=== PATIENT | female | born 1935 | race Caucasian/White ===

== ENCOUNTER → 2016-12-30 | Outpatient (CLI) | payer MEDICARE, BC ==
--- NOTE | 2016-12-30 10:55 | US ---
EXAMINATION TYPE: US venous doppler duplex LE LT DATE OF EXAM: 12/30/2016 10:36 AM COMPARISON: NONE CLINICAL HISTORY: Lt leg, M25.572 Ankle, M79.672 Foot Pain. Fracture left ankle x 6 weeks ago. Pain. Takes aspirin daily. SIDE PERFORMED: Left TECHNIQUE: The lower extremity deep venous system is examined utilizing real time linear array sonog bernice with graded compression, doppler sonography and color-flow sonography. VESSELS IMAGED: External Iliac Vein (EIV) Common Femoral Vein Deep Femoral Vein Greater Saphenous Vein * Femoral Vein Popliteal Vein Small Saphenous Vein * Proximal Calf Veins (* superficial vessels) Left Leg: Appears negative for DVT IMPRESSION: No evidence for DVT at this time.
== END | disposition home or self-care (01) ==
LOC: RADUSWWP 10:01
PROVIDERS: ATTEND Orthopaedic Surgery
DX: M25.572 Pain in left ankle and joints of left foot (principal); M79.672 Pain in left foot; I80.9 Phlebitis and thrombophlebitis of unspecified site

== ENCOUNTER → 2017-09-01 | Outpatient (CLI) | payer MEDICARE, BC ==
--- NOTE | 2017-09-01 09:41 | US ---
EXAMINATION TYPE: US carotid duplex BILAT DATE OF EXAM: 09/01/2017 COMPARISON: NONE CLINICAL HISTORY: 82-year-old female R09.89 Right carotid bruit. TECHNIQUE: Carotid duplex ultrasound examination. Indirect Doppler criteria was utilized. FINDINGS: Grayscale images show bilateral tortuous vessels and minimal atherosclerotic change at the bifurcatio ns. EXAM MEASUREMENTS: RIGHT: Peak Systolic Velocity (PSV) cm/sec ----- Right CCA: 109.9 ----- Right ICA: 96.3 ----- Right ECA: 77.1 ICA/CCA ratio: 0.9 RIGHT: End Diastole cm/sec ----- Right CCA: 8.1 ----- Right ICA: 13.9 ----- Right ECA: 9.8 LEFT: Peak Systolic Velocity (PSV) cm/sec ----- Left CCA: 70.7 ----- Left ICA: 92.7 ----- Left ECA: 63.6 ICA/CCA ratio: 1.3 LEFT: End Diastole cm/sec ----- Left CCA: 7.2 ----- Left ICA: 24.1 ----- Left ECA: 10.4 VERTEBRALS (direction of flow): Right Vertebral: Antegrade Left Vertebral: Antegrade Rhythm: Arrhythmia IMPRESSION: No hemodynamically significant stenosis appreciated in either internal carotid artery. Criteria for Assigning % of Stenosis / Diameter reduction (Estimation based on the indirect measurements of the internal carotid artery velocities (ICA PSV). 1. Normal (no stenosis)=ICA PSV < 125 cm/s: ratio < 2.0: ICA EDV<40 cm/s. 2. Less than 50% stenosis=ICA PSV < 125 cm/s: ratio < 2.0: ICA EDV<40 cm/s. 3. 50 to 69% stenosis=ICA PSV of 125 to 230 cm/s: ration 2.0 ? 4.0: ICA EDV 40-100 cm/s. 4. Greater than 70% stenosis to near occlusion= ICA PSV > 230 cm/s: ratio > 4.0: ICA EDV > 100 cm/s. 5. Near occlusion= ICA PSV velocities may be low or undetectable: variable ratio and ICA EDV. 6. Total occlusion=unable to detect flow.
== END | disposition home or self-care (01) ==
LOC: RADUSWWP 08:38
PROVIDERS: ATTEND Internal Medicine
DX: R09.89 Other specified symptoms and signs involving the circulatory and respiratory systems (principal)
CPT/HCPCS: 93880

== ENCOUNTER 2019-07-03 19:09 | Emergency (ER) | payer MEDICARE, BC ==
[2019-07-03 19:14] VITALS: TEMP 97.8
[2019-07-03 20:23] LABS: Basophils % (A) 0 %; Eosinophils % (A) 1 %; HCT 44.4 % (34.0-46.0); HGB 14.9 gm/dL (11.4-16.0); Lymphocytes # (A) 0.7 k/uL (1.0-4.8); Lymphocytes % (A) 13 %; MCH 31.6 pg (25.0-35.0); MCHC 33.5 g/dL (31.0-37.0); MCV 94.5 fL (80.0-100.0); Mean Platelet Volume 6.4; Monocytes # (A) 0.3 k/uL (0-1.0); Monocytes % (A) 5 %; Neutrophils # (A) 4.3 k/uL (1.3-7.7); Neutrophils % (A) 80 %; Platelet Count 175 k/uL (150-450); RDW 14.1 % (11.5-15.5); WBC 5.5 k/uL (3.8-10.6)
[2019-07-03 20:29] LABS: Albumin 3.9 g/dL (3.5-5.0); Calcium 9.4 mg/dL (8.4-10.2); Magnesium 2.1 mg/dL (1.6-2.3); Potassium 4.7 mmol/L (3.5-5.1); Total Bilirubin 0.4 mg/dL (0.2-1.3); Total Protein 6.1 g/dL (6.3-8.2)
[2019-07-03 20:32] LABS: Partial Thromboplastin Time 25.5 sec (22.0-30.0); Prothrombin Time 10.7 sec (9.0-12.0)
[2019-07-03] MEDS ORDERED: METOPROLOL TARTRATE 5 MG/5 ML VIAL IVP STA (20:42)
--- NOTE | 2019-07-03 21:02 | XR ---
EXAMINATION TYPE: XR chest 2V DATE OF EXAM: 07/03/2019 COMPARISON: NONE HISTORY: Dysrhythmia TECHNIQUE: Frontal and lateral views of the chest are obtained. FINDINGS: Heart appears mildly enlarged. There is no heart failure. Lungs are clear of consolidation . There are no hilar masses. Costophrenic angles are clear. There is osteopenia. IMPRESSION: No active cardiopulmonary disease. MildCardiomegaly.
--- NOTE | 2019-07-03 21:18 | ED ---
Arrhythmia/Palpitations HPI - General Chief Complaint: Arrhythmia/Palpitations Stated Complaint: Afib Time Seen by Provider: 07/03/19 19:15 Source: patient Mode of arrival: ambulatory Limitations: no limitations - History of Present Illness Initial Comments: The patient is an 83-year-old female with hypothyroid and recent diagnosis of A. fib who presents the emergency room with reported palpitations. States that she saw Dr. Altman in office on Thursday. She was diagnosed with A. fib. He did start her on Eliquis and Toprol. She's been taking 25 mg twice a day. States that originally after taking the medication she started to feel improved. Today the patient was at home and stated that every time she exerted her self she would get palpitations. She denies any associated chest pain. Does admit to mild shortness of breath. She called Dr. Altman's office instructed her to take a second metoprolol going to the emergency department for further evaluation. The patient denies any fevers or chills. No nausea or vomiting. Admits to chronic lower extremity swelling however nothing that is worse at this time. She denies ripping or tearing sensation to her back. No bowel pain or changes in her bowel or bladder habits. Denies hemoptysis, hematemesis, melanotic stools or hematochezia. There are no other alleviating, precipitating or modifying factors - Related Data Home Medications Medication Instructions Recorded Confirmed Apixaban [Eliquis] 5 mg PO BID 07/03/19 07/03/19 Levothyroxine Sodium [Synthroid] 25 mcg PO DAILY 07/03/19 07/03/19 Metoprolol Tartrate [Lopressor] 25 mg PO BID 07/03/19 07/03/19 Allergies Allergy/AdvReac Type Severity Reaction Status Date / Time No Known Allergies Allergy Verified 07/03/19 19:23 Review of Systems ROS Statement: Those systems with pertinent positive or pertinent negative responses have been documented in the HPI. ROS Other: All systems not noted in ROS Statement are negative. Past Medical History Past Medical History: Atrial Fibrillation, Thyroid Disorder History of Any Multi-Drug Resistant Organisms: None Reported Past Surgical History: No Surgical Hx Reported Past Psychological History: No Psychological Hx Reported Smoking Status: Never smoker Past Alcohol Use History: None Reported Past Drug Use History: None Reported General Exam Limitations: no limitations General appearance: alert, in no apparent distress Head exam: Present: atraumatic, normocephalic, normal inspection Eye exam: Present: normal appearance, PERRL, EOMI. Absent: scleral icterus, conjunctival injection, periorbital swelling ENT exam: Present: normal exam, mucous membranes moist Neck exam: Present: normal inspection. Absent: tenderness, meningismus, lymphadenopathy Respiratory exam: Present: normal lung sounds bilaterally. Absent: respiratory distress, wheezes, rales, rhonchi, stridor Cardiovascular Exam: Present: tachycardia, irregular rhythm, normal heart sounds. Absent: systolic murmur, diastolic murmur, rubs, gallop, clicks GI/Abdominal exam: Present: soft, normal bowel sounds. Absent: distended, tenderness, guarding, rebound, rigid Extremities exam: Present: normal inspection, full ROM, normal capillary refill. Absent: tenderness, pedal edema, joint swelling, calf tenderness Back exam: Present: normal inspection Neurological exam: Present: alert, oriented X3, CN II-XII intact Psychiatric exam: Present: normal affect, normal mood Skin exam: Present: warm, dry, intact, normal color. Absent: rash Course Vital Signs 07/03/19 07/03/19 19:11 21:35 Temperature 97.8 F Pulse Rate 114 H 86 Respiratory 20 18 Rate Blood Pressure 156/86 137/83 O2 Sat by Pulse 97 99 Oximetry EKG Findings - EKG Comments: EKG Findings:: EKG demonstrates A. fib with rapid ventricular response 110. QRS 80. QTC 457. No acute ST segment elevations or depressions. There are PVCs. Medical Decision Making - Medical Decision Making Arrival the patient was placed into room 1. Thorough history and physical exam was performed. The patient does have an EKG which demonstrates atrial fibrillation. Her rate does vary from 90s to 1 teens. I recommended completing laboratory studies and a chest x-ray. Blood work is unremarkable. First troponin is negative. Chest x-ray demonstrates no acute cardiopulmonary proces s. I did observe the patient and she does have improvement in her heart rate without any medication administration the emergency department. Her heart rate is consistently in the 90s. I called and discussed the case with Dr. Altman who recommended increasing the patient's Toprol to 50 twice a day. The patient previously took this at home in her blood pressures are stable in the 130s. He does recommend that she follow up in office tomorrow. She is scheduled for an echo on Thursday. If the patient has any new or worsening symptoms she should come back to the emergency department. Daughter is at bedside and does agree to treatment plan. The patient was discharged home in stable condition - Lab Data Result diagrams: 07/03/19 20:11 07/03/19 20:11 Lab Results 07/03/19 07/03/19 07/03/19 Range/Units 20:11 20:11 20:11 WBC 5.5 (3.8-10.6) k/uL RBC 4.70 (3.80-5.40) m/uL Hgb 14.9 (11.4-16.0) gm/dL Hct 44.4 (34.0-46.0) % MCV 94.5 (80.0-100.0) fL MCH 31.6 (25.0-35.0) pg MCHC 33.5 (31.0-37.0) g/dL RDW 14.1 (11.5-15.5) % Plt Count 175 (150-450) k/uL Neutrophils % 80 % Lymphocytes % 13 % Monocytes % 5 % Eosinophils % 1 % Basophils % 0 % Neutrophils # 4.3 (1.3-7.7) k/uL Lymphocytes # 0.7 L (1.0-4.8) k/uL Monocytes # 0.3 (0-1.0) k/uL Eosinophils # 0.0 (0-0.7) k/uL Basophils # 0.0 (0-0.2) k/uL PT 10.7 (9.0-12.0) sec INR 1.0 (<1.2) APTT 25.5 (22.0-30.0) sec Sodium 142 (137-145) mmol/L Potassium 4.7 (3.5-5.1) mmol/L Chloride 112 H (98-107) mmol/L Carbon Dioxide 24 (22-30) mmol/L Anion Gap 6 mmol/L BUN 13 (7-17) mg/dL Creatinine 0.73 (0.52-1.04) mg/dL Est GFR (CKD-EPI)AfAm 88 (>60 ml/min/1.73 sqM) Est GFR (CKD-EPI)NonAf 76 (>60 ml/min/1.73 sqM) Glucose 107 H (74-99) mg/dL Calcium 9.4 (8.4-10.2) mg/dL Magnesium 2.1 (1.6-2.3) mg/dL Total Bilirubin 0.4 (0.2-1.3) mg/dL AST 33 (14-36) U/L ALT 46 (9-52) U/L Alkaline Phosphatase 65 (38-126) U/L Troponin I (0.000-0.034) ng/mL Total Protein 6.1 L (6.3-8.2) g/dL Albumin 3.9 (3.5-5.0) g/dL TSH 2.470 (0.465-4.680) mIU/L 07/03/19 Range/Units 20:11 WBC (3.8-10.6) k/uL RBC (3.80-5.40) m/uL Hgb (11.4-16.0) gm/dL Hct (34.0-46.0) % MCV (80.0-100.0) fL MCH (25.0-35.0) pg MCHC (31.0-37.0) g/dL RDW (11.5-15.5) % Plt Count (150-450) k/uL Neutrophils % % Lymphocytes % % Monocytes % % Eosinophils % % Basophils % % Neutrophils # (1.3-7.7) k/uL Lymphocytes # (1.0-4.8) k/uL Monocytes # (0-1.0) k/uL Eosinophils # (0-0.7) k/uL Basophils # (0-0.2) k/uL PT (9.0-12.0) sec INR (<1.2) APTT (22.0-30.0) sec Sodium (137-145) mmol/L Potassium (3.5-5.1) mmol/L Chloride (98-107) mmol/L Carbon Dioxide (22-30) mmol/L Anion Gap mmol/L BUN (7-17) mg/dL Creatinine (0.52-1.04) mg/dL Est GFR (CKD-EPI)AfAm (>60 ml/min/1.73 sqM) Est GFR (CKD-EPI)NonAf (>60 ml/min/1.73 sqM) Glucose (74-99) mg/dL Calcium (8.4-10.2) mg/dL Magnesium (1.6-2.3) mg/dL Total Bilirubin (0.2-1.3) mg/dL AST (14-36) U/L ALT (9-52) U/L Alkaline Phosphatase (38-126) U/L Troponin I <0.012 (0.000-0.034) ng/mL Total Protein (6.3-8.2) g/dL Albumin (3.5-5.0) g/dL TSH (0.465-4.680) mIU/L Disposition Clinical Impression: Atrial fibrillation Disposition: HOME SELF-CARE Condition: Stable Instructions (If sedation given, give patient instructions): A-fib (Atrial Fibrillation) (ED) Additional Instructions: Please follow up with Dr. Altman in office tomorrow. Return to the emergency room for any new or worsening symptoms. Take 50 mg of Metoprolol twice a day. Is patient prescribed a controlled substance at d/c from ED?: No Referrals: Robert Altman MD [Primary Care Provider] - 1-2 days Time of Disposition: 21:18
[2019-07-03 21:36] VITALS: BP 137/83; PULSE 86; RESP 18
== END 2019-07-03 21:36 | disposition home or self-care (01) ==
LOC: EC 19:09
DX: I48.91 Unspecified atrial fibrillation (principal); E03.9 Hypothyroidism, unspecified; M79.89 Other specified soft tissue disorders; Z79.01 Long term (current) use of anticoagulants; Z79.890 Hormone replacement therapy; Z79.899 Other long term (current) drug therapy
CPT/HCPCS: 36415; 71046; 80053; 83735; 84443; 84484; 85025; 85610; 85730; 93005; 99285

== ENCOUNTER → 2019-07-05 | Outpatient (CLI) | payer MEDICARE, BC ==
--- NOTE | 2019-07-06 11:45 | ECHOF ---
Referral Reason:I48.91 Afib MEASUREMENTS -------- HEIGHT: 172.7 cm WEIGHT: 86.2 kg BP: RVIDd: 4.3 cm (< 3.3) IVSd: 1.5 cm (0.6 - 1.1) LVIDd: 3.5 cm (3.9 - 5.3) LVPWd: 1.7 cm (0.6 - 1.1) IVSs: 2.2 cm LVIDs: 2.3 cm LVPWs: 1.8 cm LAESV Index (A-L): 62.16 ml/m Ao Diam: 3.3 cm (2.0 - 3.7) AV Cusp: 2.0 cm (1.5 - 2.6) LA Diam: 3.7 cm (2.7 - 3.8) RAP: 20.00 mmHg RVSP: 85.93 mmHg FINDINGS -------- Atrial fibrillation with RVR. This was a technically adequate study. The left ventricular size is normal. There is moderate concentric left ventricular hypertrophy. O verall left ventricular systolic function is low-normal with, an EF between 50 - 55 %. Left ventric ular fillimg pressure cannot be estimated due to Atrial fibrillation. The right ventricle is severely enlarged. LA is severely dilated >40 ml/m2 RA appears enlarged. Interatrial and interventricular septum intact. The aortic valve is trileaflet and appears structurally normal. There is no evidence of aortic regu rgitation. There is no evidence of aortic stenosis. Moderate mitral annular calcification present. Moderate mitral regurgitation is present. Severe tricuspid regurgitation present. There is severe pulmonary hypertension. The right ventric ular systolic pressure, as measured by Doppler, is 85.93mmHg. There is no pulmonic regurgitation present. The aortic root size is normal. The inferior vena cava is dilated with poor inspiratory collapse which is consistent with estimated r ight atrial pressure of 20 mmHg. There is no pericardial effusion. CONCLUSIONS -------- 1. Atrial fibrillation with RVR. 2. This was a technically adequate study. 3. The left ventricular size is normal. 4. There is moderate concentric left ventricular hypertrophy. 5. Overall left ventricular systolic function is low-normal with, an EF between 50 - 55 %. 6. Left ventricular fillimg pressure cannot be estimated due to Atrial fibrillation. 7. The right ventricle is severely enlarged. 8. LA is severely dilated >40 ml/m2 9. RA appears enlarged. 10. Interatrial and interventricular septum intact. 11. The aortic valve is trileaflet and appears structurally normal. 12. There is no evidence of aortic regurgitation. 13. There is no evidence of aortic stenosis. 14. Moderate mitral annular calcification present. 15. Moderate mitral regurgitation is present. 16. Severe tricuspid regurgitation present. 17. There is severe pulmonary hypertension. 18. The right ventricular systolic pressure, as measured by Doppler, is 85.93mmHg. 19. There is no pulmonic regurgitation present. 20. The aortic root size is normal. 21. The inferior vena cava is dilated with poor inspiratory collapse which is consistent with estimat ed right atrial pressure of 20 mmHg. 22. There is no pericardial effusion. ORDER DESK CLERK: MITZI Trinidad
== END | disposition home or self-care (01) ==
LOC: RADECHMAIN 13:32
PROVIDERS: ATTEND Internal Medicine
DX: I08.1 Rheumatic disorders of both mitral and tricuspid valves (principal); I27.20 Pulmonary hypertension, unspecified; I48.20 Chronic atrial fibrillation, unspecified
CPT/HCPCS: 93306

== ENCOUNTER → 2021-08-12 | Outpatient (CLI) | payer MEDICARE, BC ==
--- NOTE | 2021-08-12 16:46 | ECHOF ---
Referral Reason:I50.32 MEASUREMENTS -------- HEIGHT: 172.7 cm WEIGHT: 81.6 kg BP: IVSd: 1.4 cm (0.6 - 1.1) LVIDd: 3.5 cm (3.9 - 5.3) LVPWd: 1.2 cm (0.6 - 1.1) EDV(Teich): 53 ml IVSs: 1.5 cm LVIDs: 2.7 cm LVPWs: 1.6 cm %IVS Thck: 3 % ESV(Teich): 26 ml EF(Teich): 50 % %FS: 25 % SV(Teich): 26 ml LA Diam: 4.4 cm (2.7 - 3.8) RVIDd: 3.2 cm (< 3.3) RA Diam: 5.3 cm LALs A4C: 6.9 cm LAAs A4C: 30.4 cm LAESV A-L A4C: 114 ml LAESV MOD A4C: 107 ml LALs A2C: 6.7 cm LAAs A2C: 31.2 cm LAESV A-L A2C: 124 ml LAESV MOD A2C: 117 ml LAESV(A-L): 121 ml LAESV Index (A-L): 61.63 ml/m Ao Diam: 3.3 cm (2.0 - 3.7) LA Diam: 4.9 cm (2.7 - 3.8) AV Cusp: 1.9 cm (1.5 - 2.6) EPSS: 0.2 cm TR Vmax: 2.96 m/s TR maxP.16 mmHg RAP: 5.00 mmHg RVSP: 40.16 mmHg MV EF SLOPE: 143.29 mm/s (70 - 150) MV EXCURSION: 25.34 mm (> 18.000) FINDINGS -------- Atrial fibrillation. This was a technically good study. The left ventricular size is normal. There is moderate concentric left ventricular hypertrophy. O verall left ventricular systolic function is low-normal with, an EF between 50 - 55 %. The right ventricle is normal in size. Normal LA size by volume 22+/-6 ml/m2. The right atrium is mildly enlarged. There is mild aortic valve sclerosis. There is no evidence of aortic regurgitation. [id number] mitral regurgitation is present. Cannot exclude mitral valve prolapse. Moderate tricuspid regurgitation present. There is mild pulmonary hypertension. The right ventric ular systolic pressure, as measured by Doppler, is 40.16mmHg. Trace/mild (physiologic) pulmonic regurgitation. There is no pericardial effusion. CONCLUSIONS -------- 1. The left ventricular size is normal. 2. There is moderate concentric left ventricular hypertrophy. 3. Overall left ventricular systolic function is low-normal with, an EF between 50 - 55 %. 4. The right ventricle is normal in size. 5. Normal LA size by volume 22+/-6 ml/m2. 6. The right atrium is mildly enlarged. 7. There is mild aortic valve sclerosis. 8. [id number] mitral regurgitation is present. 9. Cannot exclude mitral valve prolapse. 10. Moderate tricuspid regurgitation present. 11. There is mild pulmonary hypertension. 12. The right ventricular systolic pressure, as measured by Doppler, is 40.16mmHg. 13. Trace/mild (physiologic) pulmonic regurgitation. 14. There is no pericardial effusion. PHLEBOTOMY SUPERVISOR: Betzaida Acuña RDCS
== END | disposition home or self-care (01) ==
LOC: RADECHMAIN 11:00
PROVIDERS: ATTEND Internal Medicine
DX: I08.8 Other rheumatic multiple valve diseases (principal); I27.20 Pulmonary hypertension, unspecified
CPT/HCPCS: 93306

== ENCOUNTER → 2021-10-08 | Outpatient (CLI) | payer MEDICARE, BC ==
--- NOTE | 2021-10-08 10:14 | US ---
EXAMINATION TYPE: US carotid duplex BILAT DATE OF EXAM: 10/08/2021 COMPARISON: US Carotid 2017 CLINICAL HISTORY: I65.23 Stenosis. EXAM MEASUREMENTS: RIGHT: Peak Systolic Velocity (PSV) cm/sec ----- Right CCA: 52.4 ----- Right ICA: 67.3 ----- Right ECA: 65.9 ICA/CCA ratio: 1.3 RIGHT: End Diastole cm/sec ----- Right CCA: 20.4 ----- Right ICA: 27.5 ----- Right ECA: 14.0 LEFT: Peak Systolic Velocity (PSV) cm/sec ----- Left CCA: 48.8 ----- Left ICA: 76.4 ----- Left ECA: 43.1 ICA/CCA ratio: 1.6 LEFT: End Diastole cm/sec ----- Left CCA: 23.9 ----- Left ICA: 27.6 ----- Left ECA: 11.8 VERTEBRALS (direction of flow): Right Vertebral: Antegrade Left Vertebral: Antegrade Rhythm: Arrhythmia Tortuous vessels noted; no evidence of significant stenosis; minimal plaque formation seen bilaterall y. No significant plaque formation on grayscale images. The velocity study measurements remain within no rmal limits. Arrhythmia during real-time scanning redemonstrated. IMPRESSION: No hemodynamically significant stenosis in either internal carotid artery. No signific ant change from 2017 ultrasound. Criteria for Assigning % of Stenosis / Diameter reduction (Estimation based on the indirect measurements of the internal carotid artery velocities (ICA PSV). 1. Normal (no stenosis)=ICA PSV < 125 cm/s: ratio < 2.0: ICA EDV<40 cm/s. 2. Less than 50% stenosis=ICA PSV < 125 cm/s: ratio < 2.0: ICA EDV<40 cm/s. 3. 50 to 69% stenosis=ICA PSV of 125 to 230 cm/s: ration 2.0 ? 4.0: ICA EDV 40-100 cm/s. 4. Greater than 70% stenosis to near occlusion= ICA PSV > 230 cm/s: ratio > 4.0: ICA EDV > 100 cm/s. 5. Near occlusion= ICA PSV velocities may be low or undetectable: variable ratio and ICA EDV. 6. Total occlusion=unable to detect flow.
== END | disposition home or self-care (01) ==
LOC: RADUSWWP 09:23
PROVIDERS: ATTEND Internal Medicine
DX: I65.23 Occlusion and stenosis of bilateral carotid arteries (principal)
CPT/HCPCS: 93880

== ENCOUNTER → 2023-04-22 | Outpatient (CLI) | payer MEDICARE, BC ==
[2023-04-22 10:22] LABS: African American GFR (CKD) 82 (>60 ml/min/1.73 sqM); Blood Urea Nitrogen 12 mg/dL (7-17); Non-African American GFR(CKD) 71 (>60 ml/min/1.73 sqM)
--- NOTE | 2023-04-22 12:15 | CT ---
EXAMINATION TYPE: CT abdomen pelvis wo/w con DATE OF EXAM: 04/22/2023 COMPARISON: None HISTORY: Melena CT DLP: 2262 mGycm Automated exposure control for dose reduction was used. CONTRAST: CT scan of the abdomen pelvis is performed without and with IV Contrast, patient injected with 100 mL of Isovue 300. FINDINGS- LUNG BASES- heart is markedly enlarged. There is bilateral subsegmental atelectasis small pleural ef fusions. Diaphragmatic calcifications are noted correlate for history of asbestos related disease. Mi tral annular calcifications are also incidentally noted as well as coronary artery calcium LIVER/GB- there are scattered hypodensities noted within the liver and areas of calcification. Calc ification likely related to granuloma or vascular. Hypodensity within the left lobe of the liver too small to characterize but likely relate simple cyst. Additional smaller hypodensity in the right lobe of the liver also too small to characterize but most likely a simple cyst. No gallstones. PANCREAS- there is a 1.9 cm pancreatic tail lesion measuring 10 Hounsfield units suggestive of a cys tic lesion. SPLEEN- No gross abnormality is seen. ADRENALS- subcentimeter bilateral adrenal nodularity to small to characterize and indeterminate. KIDNEYS/BLADDER-no hydronephrosis or nephrolithiasis. There are bilateral simple appearing parapelvic renal cysts. BOWEL- there is a small hiatal hernia. Stomach is nondistended limiting. There appears to be no evid ence of bowel obstruction. Appendix normal. There is localized regional wall thickening of the right colon near the ileocecal bowel. No inflammatory changes. LYMPH NODES- No greater than 1cm abdominal or pelvic lymph nodes are appreciated. OSSEOUS STRUCTURES- bilateral hip arthropathy. Height and disc spaces fairly well maintained OTHER- small fat-containing bilateral inguinal hernia with a small amount of fluid noted in the righ t. IMPRESSION- 1. There is wall thickening in the right colon with no adjacent inflammatory changes. Would recommend either colonoscopy or barium enema to exclude mucosal lesion. 2. Severe cardiomegaly 3. Calcification along the right hemidiaphragm or diaphragmatic surface of liver appears chronic grecia tional hepatic calcifications are noted as discussed above. 4. Subcentimeter hypodensities within the liver too small to characterize but likely related to simpl e cysts 5. 1.9 cm pancreatic tail lesion appears most likely on the basis of a pancreatic cyst. IPMN would al so be in the differential diagnosis. Recommend MRI of the abdomen.
== END | disposition home or self-care (01) ==
LOC: RADCTMAIN 09:31
PROVIDERS: ATTEND Internal Medicine
DX: K86.89 Other specified diseases of pancreas (principal); I50.32 Chronic diastolic (congestive) heart failure; K63.89 Other specified diseases of intestine; I51.7 Cardiomegaly; K92.1 Melena; J98.4 Other disorders of lung
CPT/HCPCS: 82565; 84520; 74178; 36415; Q9967

== ENCOUNTER 2023-11-04 12:45 | Emergency (ER) | payer MEDICARE, BC ==
--- NOTE | 2023-11-04 13:14 | ED ---
General Adult HPI - General Source: patient, RN notes reviewed Mode of arrival: ambulatory Limitations: no limitations <Rupesh Patel - Last Filed: 11/04/23 13:13> - General Source: RN notes reviewed, old records reviewed Mode of arrival: ambulatory Limitations: no limitations - History of Present Illness -: days(s) Location: abdomen, pelvis, genitals Severity scale (1-10): 0 Consistency: intermittent, now resolved Improves with: none Worsens with: none Associated Symptoms: denies other symptoms Treatments Prior to Arrival: none <Geovanny Liao - Last Filed: 11/14/23 20:28> - General Chief complaint: Recheck/Abnormal Lab/Rx Stated complaint: hemorrhoid bleeding Time Seen by Provider: 11/04/23 12:59 - History of Present Illness Initial comments: 88-year-old female presents emergency department chief complaint of rectal bleeding, hemorrhoids. Patient states she has known hemorrhoids but states that she is having persistent bleeding. She states that she has no abdominal pain denies chest pain or shortness of breath. She is concerned as her bleeding has not subsided. She states it is bleeding more than just during bowel movements. (Rupesh Patel) This is a 88-year-old female to the ER for evaluation of rectal bleeding from what she believes is a hemorrhoid. Persistent bleeding although to stop no here in the ER. No abdominal pain. Patient is not on blood thinners no travel history or sick contacts with no other complaint, she has not had the bleeding which has been episodic low she currently feels improved, never had abdominal pain is never felt lightheaded dizzy or weak (Geovanny Liao) - Related Data Home Medications Medication Instructions Recorded Confirmed Apixaban [Eliquis] 5 mg PO BID 07/03/19 11/04/23 Levothyroxine Sodium [Synthroid] 25 mcg PO DAILY 07/03/19 11/04/23 Cholecalciferol [Vitamin D3 (125 125 mcg PO DAILY 11/04/23 11/04/23 Mcg = 5000 Iu)] Furosemide [Lasix] 20 mg PO DAILY PRN 11/04/23 11/04/23 Metoprolol Tartrate [Lopressor] 50 mg PO BID 11/04/23 11/04/23 Rosuvastatin [Crestor] 10 mg PO DAILY 11/04/23 11/04/23 metroNIDAZOLE 250 mg PO TID 11/04/23 11/04/23 Allergies Allergy/AdvReac Type Severity Reaction Status Date / Time No Known Allergies Allergy Verified 11/04/23 15:34 Review of Systems ROS Other: All systems not noted in ROS Statement are negative. <AmandaRupesh Bret - Last Filed: 11/04/23 13:13> ROS Other: All systems not noted in ROS Statement are negative. <Geovanny Liao - Last Filed: 11/14/23 20:28> ROS Statement: Those systems with pertinent positive or pertinent negative responses have been documented in the HPI. Past Medical History Past Medical History: Atrial Fibrillation, Thyroid Disorder History of Any Multi-Drug Resistant Organisms: None Reported Past Surgical History: No Surgical Hx Reported Past Psychological History: No Psychological Hx Reported Smoking Status: Never smoker Past Alcohol Use History: None Reported Past Drug Use History: None Reported <Rupesh Patel Bret - Last Filed: 11/04/23 13:13> General Exam Limitations: no limitations <AmandaRupesh Queen - Last Filed: 11/04/23 13:13> General appearance: alert, in no apparent distress Head exam: Present: atraumatic, normocephalic, normal inspection Eye exam: Present: normal appearance, PERRL, EOMI. Absent: scleral icterus, conjunctival injection, periorbital swelling ENT exam: Present: normal exam, mucous membranes moist Neck exam: Present: normal inspection. Absent: tenderness, meningismus, lymphadenopathy Respiratory exam: Present: normal lung sounds bilaterally. Absent: respiratory distress, wheezes, rales, rhonchi, stridor Cardiovascular Exam: Present: regular rate, normal rhythm, normal heart sounds. Absent: systolic murmur, diastolic murmur, rubs, gallop, clicks GI/Abdominal exam: Present: soft, normal bowel sounds. Absent: distended, tenderness, guarding, rebound, rigid Extremities exam: Present: normal inspection, full ROM, normal capillary refill. Absent: tenderness, pedal edema, joint swelling, calf tenderness Back exam: Present: normal inspection Neurological exam: Present: alert, oriented X3, CN II-XII intact Psychiatric exam: Present: normal affect, normal mood Skin exam: Present: warm, dry, intact, normal color. Absent: rash <Geovanny Liao - Last Filed: 11/14/23 20:28> - General Exam Comments Initial Comments: Visual Physical Exam Vital signs reviewed General: Well-appearing, nontoxic, no acute distress. Head: Normocephalic, atraumatic Eyes: PERRLA, EOMI ENT: Airway patent Chest: Nonlabored breathing Skin: No visual rash, normal skin tone Neuro: Alert and oriented 3 Musculoskeletal: No gross abnormalities (Rupesh Patel) Course <Geovanny Liao - Last Filed: 11/14/23 20:28> Vital Signs 11/04/23 11/04/23 13:07 14:45 Temperature 97.7 F 98.6 F Pulse Rate 121 H 114 H Respiratory 18 17 Rate Blood Pressure 142/82 145/98 O2 Sat by Pulse 94 L 97 Oximetry - Reevaluation(s) Reevaluation #1: Medical records reviewed (Geovanny Liao) Reevaluation #2: Patient symptoms improved (Geovanny Liao) Reevaluation #3: Patient informed of results and questions answered (Geovanny Liao) Reevaluation #4: 11/11/23 22:24 Was pt. sent in by a medical professional or institution (, PA, BEAMER [employer], urgent care, hospital, or prison...) When possible be specific @ -no Did you speak to anyone other than the patient for history (EMS, parent, family, police, friend...)? What history was obtained from this source @ -no Did you review nursing and triage notes (agree or disagree)? Why? @ -agree Are old charts reviewed (outside hosp., previous admission, EMS record, old EKG, old radiological studies, urgent care reports/EKG's, prison records)? Report findings @ -yes Differential Diagnosis (chest pain, altered mental status, abdominal pain women, abdominal pain men, vaginal bleeding, weakness, fever, dyspnea, syncope, headache, dizziness, GI bleed, back pain, seizure, CVA, palpatations, mental health, musculoskeletal)? @ -prior EKG interpreted by me (3pts min.). @ -yes X-rays interpreted by me (1pt min.). @ -no CT interpreted by me (1pt min.). @ -no U/S interpreted by me (1pt. min.). @ -no What testing was considered but not performed or refused? (CT, X-rays, U/S, labs)? Why? @ -none What meds were considered but not given or refused? Why? @ -none Did you discuss the management of the patient with other professionals (professionals i.e. , PA, BE[employer], lab, RT, psych nurse, neonatal social worker, pigeon fancier, teacher, forest fire officer, watch case polisher)? Give summary @ -no Was smoking cessation discussed for >3mins.? @ -no Was critical care preformed (if so, how long)? @ -no Were there social determinants of health that impacted care today? How? (Homelessness, low income, unemployed, alcoholism, drug addiction, transportation, low edu. Level, literacy, decrease access to med. care, penitentiary, rehab)? @ -none Was there de-escalation of care discussed even if they declined (Discuss DNR or withdrawal of care, Hospice)? DNR status @ -no What co-morbidities impacted this encounter? (DM, HTN, Smoking, COPD, CAD, Cancer, CVA, ARF, Chemo, Hep., AIDS, mental health diagnosis, sleep apnea, morbid obesity)? @ -none Was patient admitted / discharged? Hospital course, mention meds given and route, prescriptions, significant lab abnormalities, going to OR and other pertinent info. @ - 88 female with rectal bleeding from hemorrhoid. Patient has no acute find ings of bleeding here in the ER, normal lab values normal vital signs patient can be discharged home Discharge Undiagnosed new problem with uncertain prognosis? @ -no Drug Therapy requiring intensive monitoring for toxicity (Heparin, Nitro, Insulin, Cardizem)? @ -no Were any procedures done? @ -no Diagnosis/symptom? @ -GI bleed hemorrhoids Acute, or Chronic, or Acute on Chronic? @ -Acute Uncomplicated (without systemic symptoms) or Complicated (systemic symptoms)? @ -Complicated Side effects of treatment? @ -no Exacerbation, Progression, or Severe Exacerbation? @ -exacerbation Poses a threat to life or bodily function? How? (Chest pain, [place], [place], pneumonia, PE, COPD, DKA, ARF, appy, cholecystitis, CVA, Diverticulitis, Homicidal, Suicidal, threat to staff... and all critical care pts) @ -yes with significant GI bleed (Roskopp,Geovanny B) Reevaluation #5: Differential GI Bleed: Esophageal varices, aortoenteric fistula, Love-Cuevas, gastritis, peptic ulcer disease, diverticulosis, inflammatory bowel disease, hemorrhoids, fissure, colitis, malignancy, Meckels diverticulum, this is not meant to be an all- inclusive list. (Geovanny Liao) EKG Findings - EKG Comments: EKG Findings:: EKG is A-fib with RVR 110 QRS 104 QTc 404 - EKG Results: EKG: interpreted by ERMD <Geovanny Liao - Last Filed: 11/14/23 20:28> Medical Decision Making <Rupesh Patel - Last Filed: 11/04/23 13:13> - Lab Data Result diagrams: 11/04/23 13:19 11/04/23 13:19 - EKG Data -: EKG Interpreted by Me <Geovanny Liao - Last Filed: 11/14/23 20:28> - Medical Decision Making I completed the quick note portion of this chart signed Rupesh Patel PA-C (Rupesh Patel) 88 female with rectal bleeding from hemorrhoid. Patient has no acute findings of bleeding here in the ER, normal lab values normal vital signs patient can be discharged home (Geovanny Liao) - Lab Data Lab Results 11/04/23 11/04/23 11/04/23 Range/Units 13:19 13:19 13:19 WBC 6.0 (3.8-10.6) k/uL RBC 4.78 (3.80-5.40) m/uL Hgb 15.1 (11.4-16.0) gm/dL Hct 46.7 H (34.0-46.0) % MCV 97.8 (80.0-100.0) fL MCH 31.7 (25.0-35.0) pg MCHC 32.4 (31.0-37.0) g/dL RDW 14.7 (11.5-15.5) % Plt Count 159 (150-450) k/uL MPV 8.1 Neutrophils % 74 % Lymphocytes % 16 % Monocytes % 8 % Eosinophils % 1 % Basophils % 0 % Neutrophils # 4.4 (1.3-7.7) k/uL Lymphocytes # 1.0 (1.0-4.8) k/uL Monocytes # 0.5 (0-1.0) k/uL Eosinophils # 0.0 (0-0.7) k/uL Basophils # 0.0 (0-0.2) k/uL PT 12.4 (10.0-12.5) sec INR 1.2 H (<1.2) APTT 25.9 (22.0-30.0) sec Sodium 141 (137-145) mmol/L Potassium 4.3 (3.5-5.1) mmol/L Chloride 106 (98-107) mmol/L Carbon Dioxide 24 (22-30) mmol/L Anion Gap 11 mmol/L BUN 15 (7-17) mg/dL Creatinine 0.92 (0.52-1.04) mg/dL Est GFR (CKD-EPI)AfAm 64 (>60 ml/min/1.73 sqM) Est GFR (CKD-EPI)NonAf 56 (>60 ml/min/1.73 sqM) Glucose 108 H (74-99) mg/dL Calcium 9.8 (8.4-10.2) mg/dL Total Bilirubin 0.8 (0.2-1.3) mg/dL AST 27 (14-36) U/L ALT 21 (4-34) U/L Alkaline Phosphatase 85 (38-126) U/L Total Protein 6.8 (6.3-8.2) g/dL Albumin 4.6 (3.5-5.0) g/dL Disposition <Rupesh Patel - Last Filed: 11/04/23 13:13> Is patient prescribed a controlled substance at d/c from ED?: No Time of Disposition: 15:30 <Geovanny Liao - Last Filed: 11/14/23 20:28> Clinical Impression: GI bleed, Coagulopathy, Hemorrhoids Disposition: HOME SELF-CARE Condition: Good Instructions (If sedation given, give patient instructions): Gastrointestinal Bleeding (ED) Referrals: Clinton Ladd MD [Primary Care Provider] - 1-2 days
[2023-11-04 13:42] LABS: Basophils % (A) 0 %; Eosinophils % (A) 1 %; HCT 46.7 % (34.0-46.0); HGB 15.1 gm/dL (11.4-16.0); Lymphocytes % (A) 16 %; MCH 31.7 pg (25.0-35.0); MCHC 32.4 g/dL (31.0-37.0); MCV 97.8 fL (80.0-100.0); Mean Platelet Volume 8.1; Monocytes # (A) 0.5 k/uL (0-1.0); Monocytes % (A) 8 %; Neutrophils # (A) 4.4 k/uL (1.3-7.7); Neutrophils % (A) 74 %; Platelet Count 159 k/uL (150-450); RBC 4.78 m/uL (3.80-5.40); RDW 14.7 % (11.5-15.5)
[2023-11-04 14:01] LABS: ALT 21 U/L (4-34); AST 27 U/L (14-36); African American GFR (CKD) 64 (>60 ml/min/1.73 sqM); Albumin 4.6 g/dL (3.5-5.0); Alkaline Phosphatase 85 U/L (38-126); Anion Gap 11 mmol/L; Blood Urea Nitrogen 15 mg/dL (7-17); Calcium 9.8 mg/dL (8.4-10.2); Carbon Dioxide 24 mmol/L (22-30); Chloride 106 mmol/L (98-107); Glucose 108 mg/dL (74-99); Non-African American GFR(CKD) 56 (>60 ml/min/1.73 sqM); Potassium 4.3 mmol/L (3.5-5.1); Sodium 141 mmol/L (137-145); Total Bilirubin 0.8 mg/dL (0.2-1.3); Total Protein 6.8 g/dL (6.3-8.2)
[2023-11-04 14:25] LABS: INR 1.2 (<1.2); Partial Thromboplastin Time 25.9 sec (22.0-30.0); Prothrombin Time 12.4 sec (10.0-12.5)
[2023-11-04 14:51] VITALS: BP 145/98; PULSE 114; RESP 17; TEMP 98.6
== END 2023-11-04 15:45 | disposition home or self-care (01) ==
LOC: EC 12:45
DX: D68.9 Coagulation defect, unspecified (principal); K92.2 Gastrointestinal hemorrhage, unspecified; I48.91 Unspecified atrial fibrillation; E07.9 Disorder of thyroid, unspecified; Z79.01 Long term (current) use of anticoagulants; Z79.890 Hormone replacement therapy; Z79.899 Other long term (current) drug therapy
CPT/HCPCS: 36415; 80053; 85025; 85610; 85730; 93005; 99284

== ENCOUNTER → 2023-12-14 | Outpatient (CLI) | payer MEDICARE, BC ==
--- NOTE | 2023-12-14 19:23 | US ---
EXAMINATION TYPE: US arterial LE single level DATE OF EXAM: 12/14/2023 9:42 AM CLINICAL INDICATION: Female, 88 years old with history of I73.9 PERIPHERAL VASCULAR DISEASE, UNSPECIF IED; History of: Smoker: No Hypertension: No Diabetic: No Hyperlipidemia: No TIA/CVA: No Previous Vascular Surgery: No CAD: No OR: No Vascular Ulcers: No Claudication: No Gangrene: No Right Brachial Pressure: 133 Left Brachial Pressure: 125 Ankle-Brachial Indices: Right: 1.07 Left: 1.05 (Vessel hardening > 1.4; Normal 0.9 - 1.4, Moderate 0.7 - 0.9, Severe 0.5-0.7) Abnormal rhythm noted throughout exam. Patient states she has known Afib IMPRESSION: Normal ankle-brachial indices bilaterally.
== END | disposition home or self-care (01) ==
LOC: RADUSWWP 09:10
PROVIDERS: ATTEND Internal Medicine
DX: I73.9 Peripheral vascular disease, unspecified (principal)
CPT/HCPCS: 93922

== ENCOUNTER 2024-05-10 18:17 | Inpatient (IN) | payer MEDICARE, BC ==
--- NOTE | 2024-05-10 18:33 | ED ---
GI Bleed HPI - General Source: patient, RN notes reviewed Mode of arrival: ambulatory Limitations: no limitations <Bee Tyson - Last Filed: 05/10/24 18:32> <Klever Holbrook - Last Filed: 05/10/24 21:41> - General Stated complaint: rectal bleeding Time Seen by Provider: 05/10/24 18:32 - History of Present Illness Initial comments: Quick note: 88-year-old female presented to the ER with a chief complaint of rectal bleeding. Patient reports a past medical history significant of hemorrhoids. She states this morning she started to have bright red blood in the toilet after defecating. Patient has been consistently bleeding throughout the day saturating pads. Patient is on Eliquis for atrial fibrillation. No abdominal pain, fevers, chills, nausea, vomiting. No history of GI bleeds. Patient has never had a colonoscopy. Patient reports she is feeling weak. (Bee Tyson) Dictation was produced using [employer] dictation software. please excuse any grammatical, word or spelling errors. Chief Complaint: 88-year-old female presents to the emergency department bright red blood per rectum History of Present Illness: Patient is 88-year-old female presents with bright red blood per rectum today. Patient states that her symptoms began. Patient states she is exsanguinating from her anus. Patient has a history of hemorrhoids. Denies any abdominal pain or rectal pain. Patient takes anticoagulation medications. She is on Eliquis for A-fib. The ROS documented in this emergency department record has been reviewed and confirmed by me. Those systems with pertinent positive or negative responses have been documented in the HPI. All other systems are other negative and/or noncontributory. (Klever Holbrook) - Related Data Home Medications Medication Instructions Recorded Confirmed Apixaban [Eliquis] 5 mg PO DAILY 07/03/19 05/10/24 Levothyroxine Sodium [Synthroid] 25 mcg PO DAILY 07/03/19 05/10/24 Furosemide [Lasix] 20 mg PO DAILY PRN 11/04/23 05/10/24 Metoprolol Tartrate [Lopressor] 50 mg PO BID 11/04/23 05/10/24 Rosuvastatin [Crestor] 10 mg PO DAILY 11/04/23 05/10/24 Allergies Allergy/AdvReac Type Severity Reaction Status Date / Time No Known Allergies Allergy Verified 05/10/24 20:55 Review of Systems ROS Other: All systems not noted in ROS Statement are negative. <Bee Tyson - Last Filed: 05/10/24 18:32> ROS Other: All systems not noted in ROS Statement are negative. <Klever Holbrook - Last Filed: 05/10/24 21:41> ROS Statement: Those systems with pertinent positive or pertinent negative responses have been documented in the HPI. Past Medical History Past Medical History: Atrial Fibrillation, Thyroid Disorder History of Any Multi-Drug Resistant Organisms: None Reported Past Surgical History: No Surgical Hx Reported Past Psychological History: No Psychological Hx Reported Smoking Status: Never smoker Past Alcohol Use History: None Reported Past Drug Use History: None Reported <Bee Tyson - Last Filed: 05/10/24 18:32> General Exam <Bee Tyson - Last Filed: 05/10/24 18:32> <Klever Holbrook - Last Filed: 05/10/24 21:41> - General Exam Comments Initial Comments: Visual Physical Exam Vital signs reviewed General: Well-appearing, nontoxic, no acute distress. Head: Normocephalic, atraumatic Eyes: PERRLA, EOMI ENT: Airway patent Chest: Nonlabored breathing Skin: No visual rash, normal skin tone Neuro: Alert and oriented 3 Musculoskeletal: No gross abnormalities (Bee Tyson) PHYSICAL EXAM: General Impression: Alert and oriented x3, not in acute distress HEENT: Normocephalic atraumatic, extra-ocular movements intact, pupils equal and reactive to light bilaterally, mucous membranes moist. Cardiovascular: Heart regular rate and rhythm Chest: Able to complete full sentences, no retractions, no tachypnea Abdomen: abdomen soft, non-tender, non-distended, no organomegaly Musculoskeletal: Pulses present and equal in all extremities, no peripheral edema Motor: no focal deficits noted Neurological: CN II-XII grossly intact, no focal motor or sensory deficits noted Skin: Intact with no visualized rashes Psych: Normal affect and mood Rectal exam: Bleeding hemorrhoid (Klever Holbrook) Course <Klever Holbrook - Last Filed: 05/10/24 21:41> Vital Signs 05/10/24 21:00 Pulse Rate 94 Respiratory 18 Rate Blood Pressure 158/90 O2 Sat by Pulse 95 Oximetry - Reevaluation(s) Reevaluation #1: 05/10/24 20:[address] Araya at 8:48 PM. Patient has stable vitals at this time. Hemoglobin is stable at 15.3. Patient in no acute distress. Discussed with Dr. Felix that the bleeding coming from her rectum is rather brisk. States she should be admitted to medicine and he will consult on her. (Klever Holbrook) Medical Decision Making <Bee Tyson - Last Filed: 05/10/24 18:32> - Lab Data Result diagrams: 05/10/24 19:41 05/10/24 19:41 <Klever Holbrook - Last Filed: 05/10/24 21:41> - Medical Decision Making I performed the quick note portion of this chart. Electronically signed by Bee Tyson PA-C (Bee Tyson) My EKG interpretation: Ventricular rate 101, A-fib, QRS 99, QTc 4 4. no QTC prolongation, no ST or T-wave changes noted. Overall, this EKG is unremarkable Was pt. sent in by a medical professional or institution (BARTOLOME Deluna, ASSISTIVE TECHNOLOGY SPECIALIST, urgent care, hospital, or fpc...) When possible be specific @ -No Did you speak to anyone other than the patient for history (EMS, parent, family, police, friend...)? What history was obtained from this source @ -Some history obtained from family states the patient has history of he morrhoids Did you review nursing and triage notes (agree or disagree)? Why? @ -I reviewed and agree with nursing and triage notes Were old charts reviewed (outside hosp., previous admission, EMS record, old EKG, old radiological studies, urgent care reports/EKG's, fpc records)? Report findings @ -No old charts were reviewed Differential Diagnosis (chest pain, altered mental status, abdominal pain women, abdominal pain men, vaginal bleeding, musculoskeletal, weakness, fever, dyspnea , syncope, headache, dizziness, GI bleed, back pain, seizure, CVA, palpatations, mental health)? @ -Differential GI Bleed: Esophageal varices, aortoenteric fistula, Love-Cuevas, gastritis, peptic ulcer disease, diverticulosis, inflammatory bowel disease, hemorrhoids, fissure, colitis, malignancy, Meckel's diverticulum, this is not meant to be an all- inclusive list. EKG interpreted by me (3pts min.). @ -See above X-rays interpreted by me (1pt min.). @ -None done CT interpreted by me (1pt min.). @ -None done U/S interpreted by me (1pt. min.). @ -None done What testing was considered but not performed or refused? (CT, X-rays, U/S, labs)? Why? @ -None What meds were considered but not given or refused? Why? @ -None Was smoking cessation discussed for >3mins.? @ -No Were there social determinants of health that impacted care today? How? (Homelessness, low income, unemployed, alcoholism, drug addiction, transportation, low edu. Level, literacy, decrease access to med. care, halfway, rehab)? @ -No Was there de-escalation of care discussed even if they declined (Discuss DNR or withdrawal of care, Hospice)? DNR status @ -No What co-morbidities impacted this encounter? (DM, HTN, Smoking, COPD, CAD, Cancer, CVA, ARF, Chemo, Hep., AIDS, mental health diagnosis, sleep apnea, morbid obesity)? @ -Anticoagulation use Was patient admitted / discharged? Hospital course, mention meds given and route, prescriptions, significant lab abnormalities, going to OR and other pertinent info. @ -88-year-old female red blood per rectum. Vital signs upon arrival are stable. Patient does take anticoagulation medications. She also does take metoprolol. Laboratory evaluation obtained. Hemoglobin 15.3. Rest of labs within acceptable limits. So-called blood is positive. Patient still having some what appears to be venous oozing from her rectum. Case discussed with Dr. Felix who is agreeable for patient to be admitted to our facility given that there is concern of bleeding from internal hemorrhoid. Case discussed with Dr. Montiel who feels that patient is not a candidate for ICU admission. Case discussed with Dr. Ladd for admission. Did you discuss the management of the patient with other professionals (professionals i.e. , PA, ASSISTIVE TECHNOLOGY SPECIALIST, lab, RT, psych nurse, geriatric social worker, postdoctoral scientist, teacher, chief information officer, caser shoe parts)? Give summary @ -See above Was critical care preformed (if so, how long)? @ -Yes, 33 minutes Undiagnosed new problem with uncertain prognosis? @ -No Drug Therapy requiring intensive monitoring for toxicity (Heparin, Nitro, Insulin, Cardizem)? @ -No Were any procedures done? @ -No Diagnosis/symptom? Acute, or Chronic, or Acute on Chronic? Uncomplicated (without systemic symptoms) or Complicated (systemic symptoms)? @ -Bright red blood per rectum Side effects of treatment? @ -No Exacerbation, Progression, or Severe Exacerbation? @ -No Poses a threat to life or bodily function? How? (Chest pain, [place], [place], pneumonia, PE, COPD, DKA, ARF, appy, cholecystitis, CVA, Diverticulitis, Homicidal, Suicidal, threat to staff... and all critical care pts) @ -yes (Klever Holbrook) - Lab Data Lab Results 05/10/24 05/10/24 05/10/24 Range/Units 19:41 19:41 19:41 WBC 5.9 (3.8-10.6) k/uL RBC 4.74 (3.80-5.40) m/uL Hgb 15.3 (11.4-16.0) gm/dL Hct 45.2 (34.0-46.0) % MCV 95.3 (80.0-100.0) fL MCH 32.2 (25.0-35.0) pg MCHC 33.8 (31.0-37.0) g/dL RDW 14.7 (11.5-15.5) % Plt Count 188 (150-450) k/uL MPV 7.7 Neutrophils % 76 % Lymphocytes % 14 % Monocytes % 8 % Eosinophils % 0 % Basophils % 0 % Neutrophils # 4.4 (1.3-7.7) k/uL Lymphocytes # 0.9 L (1.0-4.8) k/uL Monocytes # 0.5 (0-1.0) k/uL Eosinophils # 0.0 (0-0.7) k/uL Basophils # 0.0 (0-0.2) k/uL PT 12.7 H (10.0-12.5) sec INR 1.2 H (<1.2) APTT 27.0 (22.0-30.0) sec Sodium 140 (137-145) mmol/L Potassium 4.5 (3.5-5.1) mmol/L Chloride 108 H (98-107) mmol/L Carbon Dioxide 25 (22-30) mmol/L Anion Gap 7 mmol/L BUN 10 (7-17) mg/dL Creatinine 0.65 (0.52-1.04) mg/dL Est GFR (CKD-EPI)AfAm >90 (>60 ml/min/1.73 sqM) Est GFR (CKD-EPI)NonAf 79 (>60 ml/min/1.73 sqM) Glucose 112 H (74-99) mg/dL Plasma Lactic Acid Fred (0.7-2.0) mmol/L Calcium 10.2 (8.4-10.2) mg/dL Total Bilirubin 1.1 (0.2-1.3) mg/dL AST 24 (14-36) U/L ALT 18 (4-34) U/L Alkaline Phosphatase 71 (38-126) U/L Total Protein 6.7 (6.3-8.2) g/dL Albumin 4.6 (3.5-5.0) g/dL Amylase 45 (30-110) U/L Lipase 86 (23-300) U/L Stool Occult Blood (Negative) 05/10/24 05/10/24 Range/Units 20:42 21:02 WBC (3.8-10.6) k/uL RBC (3.80-5.40) m/uL Hgb (11.4-16.0) gm/dL Hct (34.0-46.0) % MCV (80.0-100.0) fL MCH (25.0-35.0) pg MCHC (31.0-37.0) g/dL RDW (11.5-15.5) % Plt Count (150-450) k/uL MPV Neutrophils % % Lymphocytes % % Monocytes % % Eosinophils % % Basophils % % Neutrophils # (1.3-7.7) k/uL Lymphocytes # (1.0-4.8) k/uL Monocytes # (0-1.0) k/uL Eosinophils # (0-0.7) k/uL Basophils # (0-0.2) k/uL PT (10.0-12.5) sec INR (<1.2) APTT (22.0-30.0) sec Sodium (137-145) mmol/L Potassium (3.5-5.1) mmol/L Chloride (98-107) mmol/L Carbon Dioxide (22-30) mmol/L Anion Gap mmol/L BUN (7-17) mg/dL Creatinine (0.52-1.04) mg/dL Est GFR (CKD-EPI)AfAm (>60 ml/min/1.73 sqM) Est GFR (CKD-EPI)NonAf (>60 ml/min/1.73 sqM) Glucose (74-99) mg/dL Plasma Lactic Acid Fred 0.9 (0.7-2.0) mmol/L Calcium (8.4-10.2) mg/dL Total Bilirubin (0.2-1.3) mg/dL AST (14-36) U/L ALT (4-34) U/L Alkaline Phosphatase (38-126) U/L Total Protein (6.3-8.2) g/dL Albumin (3.5-5.0) g/dL Amylase (30-110) U/L Lipase (23-300) U/L Stool Occult Blood Positive H (Negative) Disposition <Bee Tyson - Last Filed: 05/10/24 18:32> Decision Time: 21:41 <Klever Holbrook - Last Filed: 05/10/24 21:41> Clinical Impression: BRBPR (bright red blood per rectum) Disposition: ADMITTED IP TO THIS HOSP Condition: Fair Referrals: Clinton Ladd MD [Primary Care Provider] - 1-2 days
[2024-05-10 19:54] LABS: Basophils % (A) 0 %; Eosinophils % (A) 0 %; HCT 45.2 % (34.0-46.0); HGB 15.3 gm/dL (11.4-16.0); Lymphocytes # (A) 0.9 k/uL (1.0-4.8); Lymphocytes % (A) 14 %; MCH 32.2 pg (25.0-35.0); MCHC 33.8 g/dL (31.0-37.0); MCV 95.3 fL (80.0-100.0); Mean Platelet Volume 7.7; Monocytes # (A) 0.5 k/uL (0-1.0); Monocytes % (A) 8 %; Neutrophils # (A) 4.4 k/uL (1.3-7.7); Neutrophils % (A) 76 %; Platelet Count 188 k/uL (150-450); RBC 4.74 m/uL (3.80-5.40); RDW 14.7 % (11.5-15.5); WBC 5.9 k/uL (3.8-10.6)
[2024-05-10 20:06] LABS: INR 1.2 (<1.2); Prothrombin Time 12.7 sec (10.0-12.5)
[2024-05-10 20:07] LABS: ALT 18 U/L (4-34); AST 24 U/L (14-36); African American GFR (CKD) >90 (>60 ml/min/1.73 sqM); Albumin 4.6 g/dL (3.5-5.0); Alkaline Phosphatase 71 U/L (38-126); Amylase 45 U/L (30-110); Anion Gap 7 mmol/L; Blood Urea Nitrogen 10 mg/dL (7-17); Calcium 10.2 mg/dL (8.4-10.2); Carbon Dioxide 25 mmol/L (22-30); Chloride 108 mmol/L (98-107); Glucose 112 mg/dL (74-99); Lipase 86 U/L (23-300); Non-African American GFR(CKD) 79 (>60 ml/min/1.73 sqM); Potassium 4.5 mmol/L (3.5-5.1); Sodium 140 mmol/L (137-145); Total Bilirubin 1.1 mg/dL (0.2-1.3); Total Protein 6.7 g/dL (6.3-8.2)
[2024-05-10] MEDS ORDERED: NALOXONE 0.4 MG/ML 1 ML VIAL IV PRN (21:38)
[2024-05-10] MEDS: SODIUM CHLORIDE 0.9% 1,000 ML IV SCH (22:51)
[2024-05-10] MEDS: METOPROLOL TARTRATE 50 MG TAB PO STA (23:27)
[2024-05-11 09:02] LABS: Appearance,Urine Clear (Clear); Bilirubin,Urine Negative (Negative); Blood,Urine Large (Negative); Color,Urine Colorless; Glucose,Urine (UA) Negative (Negative); Ketones,Urine 1+ (Negative); Nitrite,Urine Negative (Negative); Protein,Urine Negative (Negative); Specific Gravity,Urine 1.009 (1.001-1.035); Urobilinogen,Urine <2.0 mg/dL (<2.0)
[2024-05-11 09:03] LABS: Bacteria,Urine Rare /hpf; Hyaline Casts,Urine 2 /lpf (0-2); Leukocyte Esterase,Urine Negative (Negative); Mucus,Urine Rare /hpf; RBC,Urine 43 /hpf (0-5); Squamous Epithelial Cell,Urine 2 /hpf (0-4); WBC,Urine 4 /hpf (0-5)
[2024-05-11] MEDS: PANTOPRAZOLE 40 MG/10 ML VIAL IVP SCH (14:35)
--- NOTE | 2024-05-11 14:36 | P.GSCN ---
History of Present Illness Consult date: 05/11/24 History of present illness: CHIEF COMPLAINT: rectal bleeding HISTORY OF PRESENT ILLNESS: This is a 88-year-old female who presented to the hospital with rectal bleeding. She has a known history of bleeding hemorrhoids. Patient reports that the bleeding started yesterday morning she's also had some clots. She denies any abdominal pain. Denies any rectal pain. She does take Eliquis for her A. fib. Last dose was last night. patient reports her last colonoscopy was several years ago. Hemoglobin on admission 15.3. Patient does report having a large bright red blood from rectum in the ER as well. Patient denies any prior hemorrhoid surgery. Patient reports that the bleeding is from her hemorrhoids. PAST MEDICAL HISTORY: atrial fibrillation, hypothyroidism PAST SURGICAL HISTORY: See below MEDICATIONS: See below ALLERGIES: See below SOCIAL HISTORY: No illicit drug use. REVIEW OF SYSTEMS: CONSTITUTIONAL: Denies fever or chills. HEENT: Denies blurred vision, vision changes, or eye pain. Denies hemoptysis CARDIOVASCULAR: Denies chest pain or pressure. RESPIRATORY: No shortness of breath. GASTROINTESTINAL: See HPI for pertinent findings HEMATOLOGIC: Denies bleeding disorders. GENITOURINARY: Denies any blood in urine or increased urinary frequency. SKIN: Denies pruitis. Denies rash. PHYSICAL EXAM: VITAL SIGNS: Reviewed. stable GENERAL: Well-developed in no acute distress. HEENT: No sclera icterus. Extraocular movements grossly intact. Moist buccal mucosa. Head is atraumatic, normocephalic. No nasal drainage. ABDOMEN: Soft. Nondistended. nontender NEUROLOGIC: Alert and oriented. Cranial nerves II through XII grossly intact. LABORATORY DATA: WBC 5.9 Hgb 15.3 platelets 188 INR 1.2 Sodium 140 potassium 4.5 creatinine 0.65 Lactic acid 0.9 So for occult blood positive IMAGING: ASSESSMENT: 1. Rectal bleeding with history of bleeding hemorrhoids PLAN: -further recommendations forthcoming per surgery -Hold Eliquis -Repeat CBC now Physician Advance Scout note has been reviewed by physician. Signing provider agrees with the documented findings, assessment, and plan of care. Past Medical History Past Medical History: Atrial Fibrillation, Thyroid Disorder Additional Past Medical History / Comment(s): hemorrhoids History of Any Multi-Drug Resistant Organisms: None Reported Past Surgical History: No Surgical Hx Reported Past Anesthesia/Blood Transfusion Reactions: No Reported Reaction Past Psychological History: No Psychological Hx Reported Smoking Status: Never smoker Past Alcohol Use History: None Reported Past Drug Use History: None Reported Medications and Allergies Home Medications Medication Instructions Recorded Confirmed Type Apixaban [Eliquis] 5 mg PO DAILY 07/03/19 05/10/24 History Levothyroxine Sodium [Synthroid] 25 mcg PO DAILY 07/03/19 05/10/24 History Furosemide [Lasix] 20 mg PO DAILY PRN 11/04/23 05/10/24 History Metoprolol Tartrate [Lopressor] 50 mg PO BID 11/04/23 05/10/24 History Rosuvastatin [Crestor] 10 mg PO DAILY 11/04/23 05/10/24 History Allergies Allergy/AdvReac Type Severity Reaction Status Date / Time No Known Allergies Allergy Verified 05/10/24 20:55 Surgical - Exam Vital Signs Pulse Resp BP Pulse Ox 94 18 158/90 95 05/10/24 21:00 05/10/24 21:00 05/10/24 21:00 05/10/24 21:00 Results - Labs 05/10/24 19:41 05/10/24 19:41 Abnormal Lab Results - Last 24 Hours (Table) 05/10/24 05/10/24 05/10/24 Range/Units 19:41 19:41 19:41 Lymphocytes # 0.9 L (1.0-4.8) k/uL PT 12.7 H (10.0-12.5) sec INR 1.2 H (<1.2) Chloride 108 H (98-107) mmol/L Glucose 112 H (74-99) mg/dL Urine Ketones (Negative) Urine Blood (Negative) Urine RBC (0-5) /hpf Urine Bacteria (None) /hpf Urine Mucus (None) /hpf Stool Occult Blood (Negative) 05/10/24 05/11/24 Range/Units 20:42 08:45 Lymphocytes # (1.0-4.8) k/uL PT (10.0-12.5) sec INR (<1.2) Chloride (98-107) mmol/L Glucose (74-99) mg/dL Urine Ketones 1+ H (Negative) Urine Blood Large H (Negative) Urine RBC 43 H (0-5) /hpf Urine Bacteria Rare H (None) /hpf Urine Mucus Rare H (None) /hpf Stool Occult Blood Positive H (Negative) Diabetes panel 05/10/24 Range/Units 19:41 Sodium 140 (137-145) mmol/L Potassium 4.5 (3.5-5.1) mmol/L Chloride 108 H (98-107) mmol/L Carbon Dioxide 25 (22-30) mmol/L BUN 10 (7-17) mg/dL Creatinine 0.65 (0.52-1.04) mg/dL Glucose 112 H (74-99) mg/dL Calcium 10.2 (8.4-10.2) mg/dL AST 24 (14-36) U/L ALT 18 (4-34) U/L Alkaline Phosphatase 71 (38-126) U/L Total Protein 6.7 (6.3-8.2) g/dL Albumin 4.6 (3.5-5.0) g/dL Calcium panel 05/10/24 Range/Units 19:41 Calcium 10.2 (8.4-10.2) mg/dL Albumin 4.6 (3.5-5.0) g/dL Pituitary panel 05/10/24 Range/Units 19:41 Sodium 140 (137-145) mmol/L Potassium 4.5 (3.5-5.1) mmol/L Chloride 108 H (98-107) mmol/L Carbon Dioxide 25 (22-30) mmol/L BUN 10 (7-17) mg/dL Creatinine 0.65 (0.52-1.04) mg/dL Glucose 112 H (74-99) mg/dL Calcium 10.2 (8.4-10.2) mg/dL Adrenal panel 05/10/24 Range/Units 19:41 Sodium 140 (137-145) mmol/L Potassium 4.5 (3.5-5.1) mmol/L Chloride 108 H (98-107) mmol/L Carbon Dioxide 25 (22-30) mmol/L BUN 10 (7-17) mg/dL Creatinine 0.65 (0.52-1.04) mg/dL Glucose 112 H (74-99) mg/dL Calcium 10.2 (8.4-10.2) mg/dL Total Bilirubin 1.1 (0.2-1.3) mg/dL AST 24 (14-36) U/L ALT 18 (4-34) U/L Alkaline Phosphatase 71 (38-126) U/L Total Protein 6.7 (6.3-8.2) g/dL Albumin 4.6 (3.5-5.0) g/dL
[2024-05-11] MEDS: ATORVASTATIN 20 MG TAB PO SCH (14:43)
[2024-05-11] MEDS ORDERED: IOPAMIDOL CONTRAST (ORAL USE) VIAL PO PRN (15:05)
[2024-05-11 15:08] LABS: Basophils % (A) 0 %; Eosinophils % (A) 0 %; HGB 13.8 gm/dL (11.4-16.0); Hypochromasia Slight; Lymphocytes # (A) 0.7 k/uL (1.0-4.8); Lymphocytes % (A) 13 %; MCH 31.5 pg (25.0-35.0); MCHC 32.8 g/dL (31.0-37.0); MCV 95.9 fL (80.0-100.0); Mean Platelet Volume 7.6; Monocytes # (A) 0.5 k/uL (0-1.0); Monocytes % (A) 9 %; Neutrophils # (A) 4.1 k/uL (1.3-7.7); Neutrophils % (A) 76 %; Platelet Count 156 k/uL (150-450); RBC 4.38 m/uL (3.80-5.40); RDW 14.7 % (11.5-15.5); WBC 5.4 k/uL (3.8-10.6)
[2024-05-11] MEDS: METOPROLOL TARTRATE 50 MG TAB PO SCH (15:11)
[2024-05-11 15:14] LABS: ALT 15 U/L (4-34); AST 22 U/L (14-36); African American GFR (CKD) >90 (>60 ml/min/1.73 sqM); Albumin 3.9 g/dL (3.5-5.0); Alkaline Phosphatase 70 U/L (38-126); Anion Gap 8 mmol/L; Blood Urea Nitrogen 8 mg/dL (7-17); Calcium 9.6 mg/dL (8.4-10.2); Carbon Dioxide 25 mmol/L (22-30); Chloride 108 mmol/L (98-107); Glucose 96 mg/dL (74-99); Non-African American GFR(CKD) 80 (>60 ml/min/1.73 sqM); Potassium 4.2 mmol/L (3.5-5.1); Sodium 141 mmol/L (137-145); Total Bilirubin 1.2 mg/dL (0.2-1.3); Total Protein 5.8 g/dL (6.3-8.2)
--- NOTE | 2024-05-11 18:07 | CT ---
EXAMINATION TYPE: CT abdomen pelvis w con DATE OF EXAM: 05/11/2024 COMPARISON: 04/22/2023 INDICATION: abdominal distention DLP: 1018.4 mGycm, Automated exposure control for dose reduction was used. CONTRAST: 100 ml mL of Isovue 300. Study performed with Oral Contrast TECHNIQUE: Axial images were obtained from above the diaphragm to the pubic rami in the axial plane a t 5 mm thick sections. Reconstructed images are reviewed on the computer in the coronal plane. FINDINGS: Limited CT sections are obtained the lung bases. Small bilateral pleural effusions are present.. Mi nimal atelectasis at the left lung base. CT ABDOMEN: Liver: There is a calcified mass within the superior right lobe liver present previously. This appear s stable. Some additional calcifications along the ligamentum teres, present previously. Spleen: Normal Pancreas: Cyst within the tail of the pancreas. This measures 2.5 cm in size, slightly larger than in 2.0 cm previous. Adrenal glands: The adrenal glands are normal. Gallbladder: Normal Kidneys: No masses are evident. No hydronephrosis is present. No cysts are present. Aorta: Vascular calcification is within the aorta. Inferior vena cava: Normal. CT PELVIS: Loops of bowel within the abdomen and pelvis are normal. Loops of bowel appear air filled colon is u pper limits of normal. Wall thickening is not identified. There are loops of bowel which are incomp letely distended or lack oral contrast limiting their evaluation. Appendix: Normal as visualized. Urinary bladder: Distended. Genitourinary structures: Uterus and ovaries appear within normal limits Osseous structures: No suspicious lytic or sclerotic lesions. IMPRESSION: 1. Slight enlargement of a pancreatic cyst in tail of pancreas. 2. Stable appearing calcification within the liver. 3. Air-filled prominent loops of colon. No suspicious obstruction or wall thickening identified.
[2024-05-11] MEDS ORDERED: METOPROLOL TARTRATE 50 MG TAB PO SCH (21:00)
[2024-05-12 06:24] LABS: HCT 42.6 % (34.0-46.0); HGB 13.9 gm/dL (11.4-16.0); Hypochromasia Slight; MCH 31.3 pg (25.0-35.0); MCHC 32.7 g/dL (31.0-37.0); MCV 95.9 fL (80.0-100.0); Platelet Count 156 k/uL (150-450); RBC 4.44 m/uL (3.80-5.40); RDW 14.8 % (11.5-15.5); WBC 5.9 k/uL (3.8-10.6)
[2024-05-12] MEDS: LEVOTHYROXINE 25 MCG TAB PO SCH (06:33)
--- NOTE | 2024-05-12 12:16 | P.PN ---
Progress Note - Text Progress Note Date: 05/12/24 JOHNEO. Patient Hgb remains stable. PHYSICAL EXAM: VITAL SIGNS: Reviewed. stable GENERAL: Well-developed in no acute distress. HEENT: No sclera icterus. Extraocular movements grossly intact. Moist buccal mucosa. Head is atraumatic, normocephalic. No nasal drainage. ABDOMEN: Soft. Nondistended. nontender NEUROLOGIC: Alert and oriented. Cranial nerves II through XII grossly intact. ASSESSMENT: 1. Rectal bleeding with history of bleeding hemorrhoids PLAN: -CLD, ADAT -Hold Eliquis -CBC stable -No acute surgical intervention planned at this time Jad Felix [facility] [phone]
--- NOTE | 2024-05-12 18:04 | P.HPIM ---
History of Present Illness H&P Date: 05/11/24 Chief Complaint: Lower GI bleed HISTORY OF PRESENT ILLNESS: This is an 88-year-old female with a previous medical history significant for chronic atrial fibrillation anticoagulated on Eliquis 5 mg orally twice every day, hypothyroidism, mixed hyperlipidemia, vitamin D deficiency, patient contacted my office yesterday afternoon because she stated that she has bleeding from her hemorrhoids for all day long today, and she cannot seem to control her bleeding at this point in time, she was urged to go to the emergency department for evaluation, patient stated that she is going to try to get a hold of her son first and her daughter to try to get her to the emergency department, patient apparently was seen in the emergency department last night, and she was found to have a bleeding hemorrhoids, contacted general surgery Dr. Solitario he was supposed to come to see the patient for evaluation and treatment and possible banding, she was taken off Eliquis, she was in atrial fibrillation with a rate between 85 and 102, she was placed back on her metoprolol 50 mg orally twice every day, she was also taken off her Eliquis for now, and she was started on Protonix 40 mg IV push every 24 hours, patient was admitted to telemetry unit, with general surgery consultation at this time, her hemoglobin initially was 15, patient was started on IV fluid resuscitation in th e form of normal saline at 110 cc an hour, she will be monitored very closely. Repeat her CBC in the next 24 hours. REVIEW OF SYSTEMS: Constitutional: No documented fever, no chills, no night sweats. No weight change. No weakness, fatigue or lethargy. No daytime sleepiness. EENT: No headache. No blurred vision or double vision, no loss of vision. No loss of Hearing, no ringing in the ears, no dizziness. No nasal drainage or congestion. No epistaxis. No sore throat. Lungs: No shortness of breath, no cough, no sputum production. No wheezing. Reports dyspnea with activity. Cardiovascular: No chest pain, mild lower extremity edema. positive for palpitations. No paroxysmal nocturnal dyspnea. No orthopnea. No lightheadedness or dizziness. No syncopal episodes. Abdominal: Reports abdominal pain. No nausea, vomiting. No diarrhea. No constipation, positive for rectal bleeding reports loss of appetite. Genitourinary: No dysuria, increased frequency, urgency. No urinary retention. Musculoskeletal: No myalgias. No muscle weakness, no gait dysfunction, no frequent falls. No back pain. No neck pain. Integumentary: No wounds, no lesions. No rash or pruritus. No unusual bruising. No change in hair or nails. Neurologic: No aphasia. No facial droop. No change in mentation. No head injury. No headache. No paralysis. No paresthesia. Psychiatric: No depression. No anxiety. No mood swings. Endocrine: No abnormal blood sugars. No weight change. PAST MEDICAL HISTORY: Chronic atrial fibrillation. Hypothyroidism. Vitamin D deficiency. Hemorrhoids. Essential hypertension. Hyperlipidemia. PAST SURGICAL HISTORY: Bilateral eye surgery. Left cataract surgery. Colonoscopy 2011 Tonsillectomy. SOCIAL HISTORY: Patient is a lifelong non-smoker, she denies any alcohol ingestion, she denies any drug use or abuse, she lives by herself. FAMILY HISTORY: Father at the age of 84 from heart disease, mother at the age of 92 from Alzheimer dementia, patient had 5 brothers all have from brain aneurysm, 1 from alcohol last brother from heart disease, post CABG. Patient has 2 sons and 2 daughters PHYSICAL EXAMINATION: General: HEENT: Head is atraumatic, normocephalic, pupils were equal round reactive to light and recommendation, extraocular muscle movement were intact, sclera nonicteric, conjunctivae were pale, mucous membranes of the mouth are somewhat dry. Neck: Supple, no JVP, normal carotid upstroke bilaterally, no lymphadenopathy. Chest: Decreased breath sounds at the bases, few rhonchi, no expiratory wheezes, no chest wall tenderness, no intercostal retractions. Heart: First heart sound is normal, second heart sounds normal irregularly irregular due to atrial fibrillation, other systolic ejection murmur 2/6 located in the left sternal border. Abdomen: Soft, distended nontender, positive bowel sounds, no hepatosplenom egaly. Extremities: There is trace edema no calf tenderness DP +2 bilaterally. Neurologic examination: Patient is awake alert and oriented x 3, cranial nerves II-12 appear grossly intact, muscle power were 5 out of 5 in upper extremities and 5 out of 5 in bilateral lower extremities, deep tendon reflexes normal bilaterally. ASSESSMENT AND PLAN: 1. Lower GI bleed likely due to hemorrhoidal bleed. Monitor the patient CBC over the next 24 hours, her initial hemoglobin is 15, continue IV fluid r esuscitation in the form of normal saline at 75 cc an hour General Surgery consultation from Dr. Solitario. 2. Atrial fibrillation continue metoprolol 50 mg orally twice every day hold Eliquis for now. 3. Hypertension hypertensive cardiovascular disease. Continue patient on metoprolol 50 mg orally twice every day monitor the patient blood pressure very closely. 4. Mixed hyperlipidemia continue atorvastatin 20 mg once every day. 5. Hypothyroidism. Continue patient on levothyroxine 25 mcg orally once every day. 6. DVT prophylaxis. Bilateral knee-high TONY hose hold off Eliquis due to the bleed. 7. GI prophylaxis. Continue patient on Protonix 40 mg IV push every [address] hours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 9. Admit to inpatient. Estimated length of stay 2 midnights. 10. Patient is full code. Past Medical History Past Medical History: Atrial Fibrillation, Thyroid Disorder Additional Past Medical History / Comment(s): hemorrhoids History of Any Multi-Drug Resistant Organisms: None Reported Past Surgical History: No Surgical Hx Reported Past Anesthesia/Blood Transfusion Reactions: No Reported Reaction Past Psychological History: No Psychological Hx Reported Smoking Status: Never smoker Past Alcohol Use History: None Reported Past Drug Use History: None Reported Medications and Allergies Home Medications Medication Instructions Recorded Confirmed Type Apixaban [Eliquis] 5 mg PO DAILY 07/03/19 05/10/24 History Levothyroxine Sodium [Synthroid] 25 mcg PO DAILY 07/03/19 05/10/24 History Furosemide [Lasix] 20 mg PO DAILY PRN 11/04/23 05/10/24 History Metoprolol Tartrate [Lopressor] 50 mg PO BID 11/04/23 05/10/24 History Rosuvastatin [Crestor] 10 mg PO DAILY 11/04/23 05/10/24 History Allergies Allergy/AdvReac Type Severity Reaction Status Date / Time No Known Allergies Allergy Verified 05/10/24 20:55 Physical Exam Vitals: Vital Signs Temp Pulse Pulse Resp BP BP Pulse Ox 05/11/24 08:01 97.9 F 98 18 158/97 93 L 05/11/24 04:00 97.9 F 94 18 143/87 98 05/11/24 00:40 77 18 135/96 92 L 05/11/24 00:05 92 18 140/97 91 L 05/10/24 23:20 91 18 144/87 94 L 05/10/24 23:03 98 18 133/85 95 05/10/24 22:00 98 20 137/86 95 05/10/24 21:00 94 18 158/90 95 Intake and Output 05/10/24 05/11/24 05/11/24 22:59 06:59 14:59 Other: # Voids 1 Weight 79.379 kg 79.379 kg Results CBC & Chem 7: 05/12/24 05:40 05/11/24 14:45 Labs: Abnormal Lab Results - Last 24 Hours (Table) 05/10/24 05/10/24 05/10/24 Range/Units 19:41 19:41 19:41 Lymphocytes # 0.9 L (1.0-4.8) k/uL PT 12.7 H (10.0-12.5) sec INR 1.2 H (<1.2) Chloride 108 H (98-107) mmol/L Glucose 112 H (74-99) mg/dL Urine Ketones (Negative) Urine Blood (Negative) Urine RBC (0-5) /hpf Urine Bacteria (None) /hpf Urine Mucus (None) /hpf Stool Occult Blood (Negative) 05/10/24 05/11/24 Range/Units 20:42 08:45 Lymphocytes # (1.0-4.8) k/uL PT (10.0-12.5) sec INR (<1.2) Chloride (98-107) mmol/L Glucose (74-99) mg/dL Urine Ketones 1+ H (Negative) Urine Blood Large H (Negative) Urine RBC 43 H (0-5) /hpf Urine Bacteria Rare H (None) /hpf Urine Mucus Rare H (None) /hpf Stool Occult Blood Positive H (Negative) Thrombosis Risk Factor Assmnt - Choose All That Apply Any of the Below Risk Factors Present?: No Other Risk Factors: Yes Each Risk Factor Represents 3 Points: Age 75 years or older Thrombosis Risk Factor Assessment Total Risk Factor Score: 3 Thrombosis Risk Factor Assessment Level: Moderate Risk
--- NOTE | 2024-05-12 18:10 | P.PN ---
Subjective Progress Note Date: 05/12/24 HISTORY OF PRESENT ILLNESS: This is an 88-year-old female with a previous medical history sign ificant for chronic atrial fibrillation anticoagulated on Eliquis 5 mg orally twice every day, hypothyroidism, mixed hyperlipidemia, vitamin D deficiency, patient contacted my office yesterday afternoon because she stated that she has bleeding from her hemorrhoids for all day long today, and she cannot seem to control her bleeding at this point in time, she was urged to go to the emergency department for evaluation, patient stated that she is going to try to get a hold of her son first and her daughter to try to get her to the emergency department, patient apparently was seen in the emergency department last night, and she was found to have a bleeding hemorrhoids, contacted general surgery Dr. Solitario he was supposed to come to see the patient for evaluation and treatment and possible banding, she was taken off Eliquis, she was in atrial fibrillation with a rate between 85 and 102, she was placed back on her metoprolol 50 mg orally twice every day, she was also taken off her Eliquis for now, and she was started on Protonix 40 mg IV push every 24 hours, patient was admitted to telemetry unit, with general surgery consultation at this time, her hemoglobin initially was 15, patient was started on IV fluid resuscitation in the form of normal saline at 110 cc an hour, she will be monitored very closely. Repeat her CBC in the next 24 hours. 05/12: Patient is laying down in bed in no apparent distress, she denies any chest pain, she denies any shortness of breath, her heart rate is down, she continues to be in atrial fibrillation with controlled rate, she was seen by general surgery, there is no planned surgery at this point in time, started the patient on clear liquid diet advance as tolerated to a cardiac diet, patient will continue to hold Eliquis for the next 24 hours hopefully she will be able to go for hemorrhoidal banding as opposed to follow-up as an outpatient, if this is not feasible patient need to be seen as an outpatient. REVIEW OF SYSTEMS: Constitutional: No documented fever, no chills, no night sweats. No weight change. No weakness, fatigue or lethargy. No daytime sleepiness. EENT: No headache. No blurred vision or double vision, no loss of vision. No loss of Hearing, no ringing in the ears, no dizziness. No nasal drainage or congestion. No epistaxis. No sore throat. Lungs: No shortness of breath, no cough, no sputum production. No wheezing. Reports dyspnea with activity. Cardiovascular: No chest pain, mild lower extremity edema. positive for palpitations. No paroxysmal nocturnal dyspnea. No orthopnea. No lightheadedness or dizziness. No syncopal episodes. Abdominal: Reports abdominal pain. No nausea, vomiting. No diarrhea. No constipation, positive for rectal bleeding reports loss of appetite. Genitourinary: No dysuria, increased frequency, urgency. No urinary retention. Musculoskeletal: No myalgias. No muscle weakness, no gait dysfunction, no frequent falls. No back pain. No neck pain. Integumentary: No wounds, no lesions. No rash or pruritus. No unusual bruising. No change in hair or nails. Neurologic: No aphasia. No facial droop. No change in mentation. No head injury. No headache. No paralysis. No paresthesia. Psychiatric: No depression. No anxiety. No mood swings. Endocrine: No abnormal blood sugars. No weight change. PHYSICAL EXAMINATION: General: 88-year-old female laying down in bed in no apparent distress. HEENT: Head is atraumatic, normocephalic, pupils were equal round reactive to light and recommendation, extraocular muscle movement were intact, sclera nonicteric, conjunctivae were pale, mucous membranes of the mouth are somewhat dry. Neck: Supple, no JVP, normal carotid upstroke bilaterally, no lymphadenopathy. Chest: Decreased breath sounds at the bases, few rhonchi, no expiratory wheezes, no chest wall tenderness, no intercostal retractions. Heart: First heart sound is normal, second heart sounds normal irregularly irregular due to atrial fibrillation, other systolic ejection murmur 2/6 located in the left sternal border. Abdomen: Soft, distended nontender, positive bowel sounds, no hepatosplenomegaly. Extremities: There is trace edema no calf tenderness DP +2 bilaterally. Neurologic examination: Patient is awake alert and oriented x 3, cranial nerves II-12 appear grossly intact, muscle power were 5 out of 5 in upper extremities and 5 out of 5 in bilateral lower extremities, deep tendon reflexes normal bilaterally. ASSESSMENT AND PLAN: 1. Lower GI bleed likely due to hemorrhoidal bleed. her hemoglobin did drop down little bit but still stable at this time, she has no further bleeding at this point in time, she continue to hold the Eliquis for now, she was seen in consultation by general surgery, I was hoping for Dr. Solitario to do hemorrhoidal banding so the patient can be go back on her Eliquis safely, as her risk of stroke is quite elevated, I will discuss with him again tomorrow morning. Meanwhile advance the patient diet from clear liquid diet to a cardiac diet. 2. Atrial fibrillation continue metoprolol 50 mg orally twice every day hold Eliquis for now. 3. Hypertension hypertensive cardiovascular disease. Continue patient on metoprolol 50 mg orally twice every day monitor the patient blood pressure very closely. 4. Mixed hyperlipidemia continue atorvastatin 20 mg once every day. 5. Hypothyroidism. Continue patient on levothyroxine 25 mcg orally once every day. 6. DVT prophylaxis. Bilateral knee-high TONY hose hold off Eliquis due to the bleed. 7. GI prophylaxis. Continue patient on Protonix 40 mg IV push every 24 hours. 8[address] 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 9. We will repeat the labs tomorrow morning hopefully home in the next 24 hour if there is no planned surgery. Objective - Vital Signs Vital signs: Vital Signs Temp 98.2 F 05/12/24 16:30 Pulse 110 H 05/12/24 16:30 Resp 17 05/12/24 16:30 BP 149/98 05/12/24 16:30 Pulse Ox 96 05/12/24 16:30 FiO2 Intake & Output 05/11/24 05/12/24 05/12/24 18:59 06:59 18:59 Intake Total 1210 340 Output Total 800 Balance 410 340 Intake: IV 1210 Sodium Chloride 0.9% 1, 1210 000 ml @ 110 mls/hr IV . Q9H6M BRENDA Rx#:[id number] Intake, IV Titration 220 Amount Sodium Chloride 0.9% 1, 220 000 ml @ 110 mls/hr IV . Q9H6M BRENDA Rx#:[id number] Oral 120 Output: Urine 800 Other: # Voids 2 # Bowel Movements 2 - Labs CBC & Chem 7: 05/12/24 05:40 05/11/24 14:45
[2024-05-13 07:04] LABS: Basophils % (A) 1 %; Eosinophils # (A) 0.1 k/uL (0-0.7); Eosinophils % (A) 3 %; HCT 42.8 % (34.0-46.0); HGB 13.8 gm/dL (11.4-16.0); Hypochromasia Slight; Lymphocytes # (A) 0.8 k/uL (1.0-4.8); Lymphocytes % (A) 19 %; MCHC 32.3 g/dL (31.0-37.0); MCV 95.9 fL (80.0-100.0); Mean Platelet Volume 7.6; Monocytes # (A) 0.4 k/uL (0-1.0); Monocytes % (A) 10 %; Neutrophils # (A) 2.9 k/uL (1.3-7.7); Neutrophils % (A) 66 %; Platelet Count 164 k/uL (150-450); RBC 4.46 m/uL (3.80-5.40); RDW 14.8 % (11.5-15.5); WBC 4.4 k/uL (3.8-10.6)
[2024-05-13] MEDS: IV FLUID CONTINUATION 1,000 ML IV ONE (12:00)
[2024-05-13] MEDS ORDERED: PROPOFOL 10 MG/ML 20 ML VIAL IV ONE (14:10)
[2024-05-13] MEDS ORDERED: LABETALOL 5 MG/ML VIAL MDV ONE (14:10)
[2024-05-13] MEDS ORDERED: fentaNYL (PF) 50 MCG/ML 2 ML AMP ONE (14:10)
[2024-05-13] MEDS ORDERED: PHENYLEPHRINE 10 MG/ML VIAL ONE (14:10)
[2024-05-13] MEDS ORDERED: SUCCINYLCHOLINE CHLORIDE 200 MG/10 ML VIAL IV ONE (14:10)
[2024-05-13] MEDS: LIDOCAINE 1%-EPI 1:100,000 20 ML VIAL SQ ONE (14:20)
[2024-05-13] MEDS: LACTATED RINGERS 1,000 ML IV ONE (14:35)
[2024-05-13] MEDS ORDERED: HYDROcodone/APAP 7.5-325MG 1 EACH TAB PO PRN (14:50)
[2024-05-13 15:32] VITALS: RESP 16
--- NOTE | 2024-05-13 15:33 | P.OP ---
Date of Procedure: 05/13/24 Preoperative Diagnosis: Bleeding Internal Hemorrhoids Postoperative Diagnosis: Bleeding Internal Hemorrhoids Procedure(s) Performed: 1. Rectal Exam Under Anesthesia 2. Excisional Hemorrhoidectomy x 2 Anesthesia: MAC Surgeon: Jad Felix Estimated Blood Loss (ml): 10 Pathology: other (Hemorrhoids) Condition: stable Disposition: PACU Description of Procedure: The patient was brought to the operating suite and placed in the lithotomy position after General Anesthesia was given. The patient was prepped and draped in a sterile fashion. A timeout was performed before the procedure was started. A rectal exam was performed with an anoscope and two large bleeding internal h emorrhoids were noted. An javier clamp was used to grab each hemorrhoid bundle and an excisional hemorrhoidectomy x 2 was performed with a handheld ligasure device. The specimens were passed off. The defects of each hemorrhoidectomy was closed with 2-0 Vicryl Suture. The area was then irrigated. There was no further bleeding noted. A gel foam was inserted into the anal canal. Local Lidocaine with 1% Epinephrine was injected around the anal canal. The patient tolerated the procedure well and was sent to the PACU in stable condition.
--- NOTE | 2024-05-13 16:09 | P.PN ---
Subjective Progress Note Date: 05/13/24 HISTORY OF PRESENT ILLNESS: This is an 88-year-old female with a previous medical history sign ificant for chronic atrial fibrillation anticoagulated on Eliquis 5 mg orally twice every day, hypothyroidism, mixed hyperlipidemia, vitamin D deficiency, patient contacted my office yesterday afternoon because she stated that she has bleeding from her hemorrhoids for all day long today, and she cannot seem to control her bleeding at this point in time, she was urged to go to the emergency department for evaluation, patient stated that she is going to try to get a hold of her son first and her daughter to try to get her to the emergency department, patient apparently was seen in the emergency department last night, and she was found to have a bleeding hemorrhoids, contacted general surgery Dr. Solitario he was supposed to come to see the patient for evaluation and treatment and possible banding, she was taken off Eliquis, she was in atrial fibrillation with a rate between 85 and 102, she was placed back on her metoprolol 50 mg orally twice every day, she was also taken off her Eliquis for now, and she was started on Protonix 40 mg IV push every 24 hours, patient was admitted to telemetry unit, with general surgery consultation at this time, her hemoglobin initially was 15, patient was started on IV fluid resuscitation in the form of normal saline at 110 cc an hour, she will be monitored very closely. Repeat her CBC in the next 24 hours. 05/12: Patient is laying down in bed in no apparent distress, she denies any chest pain, she denies any shortness of breath, her heart rate is down, she continues to be in atrial fibrillation with controlled rate, she was seen by general surgery, there is no planned surgery at this point in time, started the patient on clear liquid diet advance as tolerated to a cardiac diet, patient will continue to hold Eliquis for the next 24 hours hopefully she will be able to go for hemorrhoidal banding as opposed to follow-up as an outpatient, if this is not feasible patient need to be seen as an outpatient. 05/13: Patient was seen in the recovery room, she is more awake and alert, her blood pressure is down, she did receive 1 dose of labetalol in the ER, that dropped her blood pressure, but she is back to recovered very well, she complains of pain in the rectum, I spoke with Dr. Solitario who have excised to hemorrhoids and the patient appears to be stable at this time, we will hold off anticoagulation for the next 24 hours, repeat CBC tomorrow morning, advance diet as tolerated, patient will be moved to her room pretty soon, I spoke with her d dorene and in law and she was updated about her current condition, likely will keep the patient in the hospital for another 24 hours hopefully if she is stable she can go home tomorrow morning. REVIEW OF SYSTEMS: Constitutional: No documented fever, no chills, no night sweats. No weight change. No weakness, fatigue or lethargy. No daytime sleepiness. EENT: No headache. No blurred vision or double vision, no loss of vision. No loss of Hearing, no ringing in the ears, no dizziness. No nasal drainage or congestion. No epistaxis. No sore throat. Lungs: No shortness of breath, no cough, no sputum production. No wheezing. Reports dyspnea with activity. Cardiovascular: No chest pain, mild lower extremity edema. positive for palpitations. No paroxysmal nocturnal dyspnea. No orthopnea. No lightheadedness or dizziness. No syncopal episodes. Abdominal: Reports abdominal pain. No nausea, vomiting. No diarrhea. No constipation, positive for rectal bleeding reports loss of appetite. Genitourinary: No dysuria, increased frequency, urgency. No urinary retention. Musculoskeletal: No myalgias. No muscle weakness, no gait dysfunction, no frequent falls. No back pain. No neck pain. Integumentary: No wounds, no lesions. No rash or pruritus. No unusual bruising. No change in hair or nails. Neurologic: No aphasia. No facial droop. No change in mentation. No head injury. No headache. No paralysis. No paresthesia. Psychiatric: No depression. No anxiety. No mood swings. Endocrine: No abnormal blood sugars. No weight change. PHYSICAL EXAMINATION: General: 88-year-old female laying down in bed in no apparent distress. HEENT: Head is atraumatic, normocephalic, pupils were equal round reactive to light and recommendation, extraocular muscle movement were intact, sclera nonicteric, conjunctivae were pale, mucous membranes of the mouth are somewhat dry. Neck: Supple, no JVP, normal carotid upstroke bilaterally, no lymphadenopathy. Chest: Decreased breath sounds at the bases, few rhonchi, no expiratory wheezes, no chest wall tenderness, no intercostal retractions. Heart: First heart sound is normal, second heart sounds normal irregularly irregular due to atrial fibrillation, other systolic ejection murmur 2/6 located in the left sternal border. Abdomen: Soft, distended nontender, positive bowel sounds, no hepatosplenomegaly. Extremities: There is trace edema no calf tenderness DP +2 bilaterally. Neurologic examination: Patient is awake alert and oriented x 3, cranial nerves II-12 appear grossly intact, muscle power were 5 out of 5 in upper extremities and 5 out of 5 in bilateral lower extremities, deep tendon reflexes normal bilaterally. ASSESSMENT AND PLAN: 1. Postoperative day #0 status post excision of 2 large hemorrhoids. Continue current pain management as outlined by general surgery, monitor the patient CBC over the next 24 hours, hold Eliquis for now. 2. Atrial fibrillation continue metoprolol 50 mg orally twice every day hold Eliquis for now. 3. Hypertension hypertensive cardiovascular disease. Continue patient on metoprolol 50 mg orally twice every day monitor the patient blood pressure very closely. 4. Mixed hyperlipidemia continue atorvastatin 20 mg once every day. 5. Hypothyroidism. Continue patient on levothyroxine 25 mcg orally once every day. 6. DVT prophylaxis. Bilateral knee-high TONY hose hold off Eliquis due to the bleed. 7. GI prophylaxis. Continue patient on Protonix 40 mg IV push every 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 9. Repeat labs tomorrow morning, and if the patient is better no bleeding she can be started back on Eliquis hopefully tomorrow night. Objective - Vital Signs Vital signs: Vital Signs Temp 97.6 F 05/13/24 14:43 Pulse 108 H 05/13/24 15:28 Resp 16 05/13/24 15:28 BP 143/80 05/13/24 15:28 Pulse Ox 94 L 05/13/24 15:28 FiO2 Intake & Output 05/12/24 05/13/24 05/13/24 18:59 06:59 18:59 Intake Total 520 1710 Output Total 10 Balance 520 1700 Weight 82 kg Intake: IV 1610 .9@ 50 600 Invasive Line 2 10 Intake, IV Titration 220 Amount Sodium Chloride 0.9% 1, 220 000 ml @ 110 mls/hr IV . Q9H6M [facility] Rx#:[id number] Oral 300 100 Output: Estimated Blood Loss 10 Other: Voiding Method Bedside Commode Bedside Commode # Voids 2 1 - Labs CBC & Chem 7: 05/13/24 06:09 05/11/24 14:45 Labs: Abnormal Lab Results - Last 24 Hours (Table) 05/13/24 Range/Units 06:09 Lymphocytes # 0.8 L (1.0-4.8) k/uL
[2024-05-13] MEDS: SODIUM CHLORIDE 0.9% 1,000 ML IV SCH (19:46)
[2024-05-13] MEDS: ACETAMINOPHEN TAB 325 MG TAB PO PRN (22:06)
[2024-05-14 07:33] LABS: Basophils % (A) 0 %; Eosinophils # (A) 0.1 k/uL (0-0.7); Eosinophils % (A) 1 %; HCT 39.7 % (34.0-46.0); HGB 13.2 gm/dL (11.4-16.0); Hypochromasia Slight; Lymphocytes # (A) 0.7 k/uL (1.0-4.8); Lymphocytes % (A) 8 %; MCH 32.2 pg (25.0-35.0); MCHC 33.4 g/dL (31.0-37.0); MCV 96.6 fL (80.0-100.0); Mean Platelet Volume 7.6; Monocytes # (A) 0.9 k/uL (0-1.0); Monocytes % (A) 10 %; Neutrophils # (A) 6.9 k/uL (1.3-7.7); Neutrophils % (A) 79 %; Platelet Count 151 k/uL (150-450); RBC 4.11 m/uL (3.80-5.40); RDW 14.9 % (11.5-15.5); WBC 8.6 k/uL (3.8-10.6)
[2024-05-14 08:31] LABS: ALT 14 U/L (4-34); AST 25 U/L (14-36); African American GFR (CKD) >90 (>60 ml/min/1.73 sqM); Albumin 3.5 g/dL (3.5-5.0); Alkaline Phosphatase 61 U/L (38-126); Anion Gap 11 mmol/L; Blood Urea Nitrogen 12 mg/dL (7-17); Calcium 9.3 mg/dL (8.4-10.2); Carbon Dioxide 20 mmol/L (22-30); Chloride 107 mmol/L (98-107); Glucose 95 mg/dL (74-99); Non-African American GFR(CKD) 84 (>60 ml/min/1.73 sqM); Sodium 138 mmol/L (137-145); Total Bilirubin 1.5 mg/dL (0.2-1.3); Total Protein 5.4 g/dL (6.3-8.2)
[2024-05-14] MEDS: METOPROLOL TARTRATE 5 MG/5 ML VIAL IVP PRN (10:00)
--- NOTE | 2024-05-14 10:57 | P.PN ---
Progress Note - Text Progress Note Date: 05/14/24 LELE. Patient Hgb remains stable. Pain is controlled. PHYSICAL EXAM: VITAL SIGNS: Reviewed. stable GENERAL: Well-developed in no acute distress. HEENT: No sclera icterus. Extraocular movements grossly intact. Moist buccal mucosa. Head is atraumatic, normocephalic. No nasal drainage. ABDOMEN: Soft. Nondistended. nontender NEUROLOGIC: Alert and oriented. Cranial nerves II through XII grossly intact. ASSESSMENT: 1. POD #1 REUA and Hemorrhoidectomy x 2 PLAN: -Regular Diet -AM labs reviewed: Hgb stable -ok to restart Eliquis -Patient ok for discharge from surgery standpoint Jad Felix DO [facility] [phone]
[2024-05-14 12:18] VITALS: BP 128/70; PULSE 88; TEMP 97.6
== END 2024-05-14 14:37 | disposition home or self-care (01) | DRG 348 ==
LOC: EC 18:17 → 3SCARD 21:39
PROVIDERS: ADMIT Internal Medicine; ATTEND Internal Medicine
PROC: 06BY0ZC Excision of Hemorrhoidal Plexus, Open Approach (ICD-10-PCS; principal; 2024-05-13 10:00)
DX: K64.8 Other hemorrhoids (principal); I48.20 Chronic atrial fibrillation, unspecified; K86.2 Cyst of pancreas; I11.9 Hypertensive heart disease without heart failure; E03.9 Hypothyroidism, unspecified; K64.9 Unspecified hemorrhoids; E78.2 Mixed hyperlipidemia; E55.9 Vitamin D deficiency, unspecified; Z79.01 Long term (current) use of anticoagulants; Z79.890 Hormone replacement therapy; Z79.899 Other long term (current) drug therapy; Z98.42 Cataract extraction status, left eye
CPT/HCPCS: 36415; 74177; 80053; 81001; 82150; 82272; 83605; 83690; 85025; 85027; 85610; 85730; 86850; 86900; 86901; 88304; 93005; 96374; 96376; 99285